=== PATIENT | male | born 1955 | race Caucasian/White ===

== ENCOUNTER → 2020-06-18 10:21 | Outpatient (CLI) | payer OTHER, SELFPAY ==
--- NOTE | ~2020-06-18 | XR_ITS ---
EXAMINATION: XR chest 2V EXAM DATE: 06/18/2020 12:48 INDICATION: Dyspnea unspecified. TECHNIQUE: Frontal and lateral projections of the chest obtained and reviewed. Comparison is made to prior examination from 12/08/2018. FINDINGS: Left midlung zone granuloma unchanged. The lungs are otherwise clear. There are no pleural effusions. The cardiomediastinal silhouette is within normal limits. There is no pneumothorax susp ected. The bones and soft tissues are unremarkable. IMPRESSION: No acute cardiopulmonary findings. Reviewed, dictated and finalized at location A.
== END ==
PROVIDERS: PCP Family Medicine; Visit Provider Nurse Practitioner Family
DX: R06.00 Dyspnea, unspecified (principal); Z72.0 Tobacco use
CPT/HCPCS: 71046

== ENCOUNTER → 2021-07-23 10:08 | Outpatient (CLI) | payer MEDICARE, SELFPAY ==
--- NOTE | ~2021-07-23 | XR_ITS ---
EXAMINATION: XR chest 2V EXAM DATE: 07/23/2021 10:55 INDICATION: R05 - Cough. TECHNIQUE: Frontal and lateral projections of the chest obtained and reviewed. Comparison is made to prior examination from 06/18/2020. FINDINGS: There is left midlung zone granuloma. The lungs are otherwise clear. There are no pleural effusions. The cardiomediastinal silhouette is within normal limits. There is no pneumothorax susp ected. The bones and soft tissues are unremarkable. IMPRESSION: No acute cardiopulmonary findings. Reviewed, dictated and finalized at location B.
--- NOTE | ~2021-07-23 | XR_ITS ---
EXAMINATION:XR cervical spine min 6V DATE: 07/23/2021 10:54 INDICATION: Neck pain TECHNIQUE: AP, and lateral in neutral, flexion, oblique, lateral swimmers and odontoid views of the c ervical spine are provided. COMPARISON: None FINDINGS: Alignment is normal. There is no laxity with flexion or extension. The odontoid is intact. No fracture is identified. The vertebral body heights and alignment are normal. There is severe loss of intervertebral disc space height at C6-7. Small degenerative osteophytes project from the anterior endplates of multiple vertebral bodies. There is severe multilevel facet joint osteoarthritis. Moder ate uncovertebral joint osteoarthritis is present in the lower cervical spine. Prevertebral soft tiss ues are normal. IMPRESSION: 1. Moderate to severe lower cervical spondylosis. Reviewed, dictated and finalized at location A.
== END ==
PROVIDERS: PCP Family Medicine; Visit Provider Family Medicine
DX: M47.812 Spondylosis without myelopathy or radiculopathy, cervical region (principal); R05 Cough
CPT/HCPCS: 71046; 72052

== ENCOUNTER → 2021-11-24 13:35 | Outpatient (CLI) | payer OTHER, SELFPAY ==
--- NOTE | ~2021-11-24 | XR_ITS ---
XR shoulder LT min 2V DATE: 11/24/2021 14:09 INDICATION: Left shoulder pain TECHNIQUE: 4 views COMPARISON: None FINDINGS: There is osteopenia. There is mild osteophyte is at the left glenohumeral joint. No fractur e or dislocation, periosteal reaction or bone destruction or any significant abnormal left shoulder s oft tissue calcification is noted. IMPRESSION: Mild osteoarthritis at the left glenohumeral joint Osteopenia Reviewed, dictated and finalized at location A. 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
--- NOTE | ~2021-11-24 | XR_ITS ---
XR ribs LT 2V w CXR 2V DATE: 11/24/2021 14:09 INDICATION: Left chest/pleural pain TECHNIQUE: 3 views of left ribs. PA and lateral chest. COMPARISON: 07/23/2021 2 view Chest FINDINGS: Normal heart size. There is mild aortic tortuosity. No hilar or mediastinal enlargement. No pulmonary infiltrate or consolidation, pleural effusion or pulmonary vascular congestion or pneumo thorax. There is old pulmonary granulomatous disease. Diffuse osteopenia. Degenerative spurring of the thoracic spine. No left rib fracture or bone destruction is evident. IMPRESSION: No active cardiac pulmonary disease No left rib fracture is evident Degenerative spurring of the thoracic spine Osteopenia Reviewed, dictated and finalized at location A. ER VAULT
== END ==
PROVIDERS: PCP Family Medicine; Visit Provider Nurse Practitioner Family
DX: R07.81 Pleurodynia (principal); M85.88 Other specified disorders of bone density and structure, other site; M85.812 Other specified disorders of bone density and structure, left shoulder; M19.012 Primary osteoarthritis, left shoulder
CPT/HCPCS: 71046; 71100; 73030

== ENCOUNTER → 2022-03-13 09:11 | Outpatient (CLI) | payer OTHER, SELFPAY ==
--- NOTE | ~2022-03-13 | MR_ITS ---
EXAMINATION: MR shoulder LT wo con DATE: 03/13/2022 09:54 INDICATION: Left shoulder pain and tingling which extends up to the left neck post fall 3 months prio r. TECHNIQUE: Magnetic resonance imaging (MRI) of the left shoulder was performed without intravenous co ntrast. Sequences included axial PD-weighted FS FSE, coronal oblique PD-weighted FS FSE, coronal obli que T2-weighted FS FSE, sagittal PD-weighted FS FSE, and sagittal T1-weighted SE. COMPARISON: None. FINDINGS: Coracoacromial arch: The acromion undersurface is curved in morphology (type II). The coracoacromial ligament is normal. M ild acromioclavicular osteoarthritis. Rotator cuff: Moderate supraspinatus tendinopathy with partial-thickness articular sided tear along the superior fa cet footplate of the supraspinatus tendon which measures approximately 2.5 cm AP and involves approxi mately two thirds of the tendon thickness. There is approximately 3 cm medial retraction of the torn articular side of the supraspinatus tendon. There is some fraying along the articular side of the ten don and could not exclude a full-thickness perforation. Mild infraspinatus and subscapularis tendinop athy without discrete tear. The teres minor tendon is normal. Normal rotator cuff muscle bulk and si gnal. Biceps tendon, glenoid labrum and glenohumeral cartilage: Moderate tendinopathy with longitudinal split tearing and mild partial thickness tearing at the junct ion of the intra-articular and extra-articular portions of the tendon. There is a tear of the posteri or inferior glenoid labrum extending from the 6:00 position anteriorly to the 8:00 position posterior ly. There is mild degenerative fraying along the free edge of the posterior superior glenoid labrum. Partial-thickness cartilage loss with smooth chondral surface and without degenerative subchondral ch anges along the posterior and inferomedial aspect of the humeral head. Fluid: Small glenohumeral joint effusion. No loose osteochondral bodies. There is however more prominent ext ension of fluid into the deep subscapular recess. Mild bicipital tenosynovitis with small amount of f luid and mild synovitis along the long head biceps tendon sheath. Similarly there is mild subacromial /subdeltoid bursitis small amount of fluid and synovitis. Bones: Normal marrow signal with no edema, fracture or pathologic marrow replacing process. IMPRESSION: 1. Moderate supraspinatus tendinopathy with severe partial thickness articular sided tear. 2. Mild bicipital tenosynovitis with moderate tendinopathy of the long head biceps tendon and both pa rtial-thickness and longitudinal split tearing of the tendon. 3. Mild left glenohumeral osteoarthritis with tear of the posterior superior glenoid labrum. 4. Mild to moderate subacromial/subdeltoid bursitis. 5. Mild acromioclavicular osteoarthritis. Reviewed, dictated and finalized at location B. IMPRESSION: 1. Moderate supraspinatus tendinopathy with severe partial thickness articular sided tear. 2. Mild bicipital tenosynovitis with moderate tendinopathy of the long head bic eps tendon and both partial-thickness and longitudinal split tearing of the ten don. 3. Mild left glenohumeral osteoarthritis with tear of the posterior superior gl enoid labrum. 4. Mild to moderate subacromial/subdeltoid bursitis. 5. Mild acromioclavicular osteoarthritis.
== END ==
PROVIDERS: PCP Family Medicine; Visit Provider Orthopaedic Surgery
DX: S46.012A Strain of muscle(s) and tendon(s) of the rotator cuff of left shoulder, initial encounter (principal); X58.XXXA Exposure to other specified factors, initial encounter; M75.22 Bicipital tendinitis, left shoulder; M19.012 Primary osteoarthritis, left shoulder; M75.52 Bursitis of left shoulder
CPT/HCPCS: 73221

== ENCOUNTER 2022-03-24 12:25 | Outpatient (CLI) | payer OTHER, SELFPAY ==
--- NOTE | 2022-03-24 12:30 | ECG_ITS ---
Measurements Intervals [place] Rate: 99 P: 27 MI: 197 QRS: 35 QRSD: 84 T: 19 QT: 335 QTc: 431 Interpretive Statements SINUS RHYTHM MINIMAL Q WAVES- ANTEROLAT/INF LEADS BORDERLINE T WAVE ABNORMALITY- INFERIOR LEADS BASELINE ARTIFACT- I, II, III, AVR BORDERLINE ECG Electronically Signed On 03-24-2022 13:05:35 CDT by Jason Rubio D.O.
== END 2022-03-24 12:26 | disposition home or self-care (01) ==
LOC: ANHSURGERY 12:30
PROVIDERS: PCP Family Medicine; Visit Provider Orthopaedic Surgery
DX: Z01.810 Encounter for preprocedural cardiovascular examination (principal); F17.210 Nicotine dependence, cigarettes, uncomplicated
CPT/HCPCS: 93005

== ENCOUNTER 2022-03-30 00:13 | Day surgery (SDC) | payer OTHER, SELFPAY ==
[2022-03-22 09:59] VITALS: BMI 30.3
--- NOTE | 2022-03-22 10:19 | PC.NURSE ---
Report to the Outpatient Waiting Room, entrance under the green pavilion located off [facility], at time _9:30AM on date ___03/30/22____. OR Time: _11:30AM . - You and your visitor will be asked a series of questions to screen for COVID 19 for your protection. - Only one visitor is allowed at this time. - The patient visitor is requested to leave or wait in car when not with patient. - A mask is required within the hospital. Patients may have clear liquids (water, carbonated beverages, clear teas, apple juice) until 3 hours prior to surgery with a maximum of 20 ounces. - No food from midnight until time of surgery - Infants may have breast milk until 4 hours before surgery, formula 6 hours prior to surgery. - Children will be allowed to drink immediately following surgery. If applicable, please bring a bottle or sippy cup to assist with drinking. Juice, water, soda, and popsicles are readily available. For infants on formula, please bring formula the day of surgery. Pacifiers are allowed. Take the following medications with a SIP of water the morning of surgery: NONE Medications to discontinue per physician NONE Date to take last dose Please no make-up, nail pashto, hairspray, perfume, deodorant, or body powder the day of surgery. No jewelry (including any body piercings) or valuables the day of surgery, leave them at home. Please take a shower or bath the night before, or the morning of, surgery with an antibacterial soap. Wear comfortable, loose fitting clothing. Children are encouraged to wear pajamas. - Jewelry must be removed prior to entering the operating room. Rings and piercings that are not removed may be cut off. - The hospital will not accept responsibility for valuables. - Please leave all valuables, including medications, at home the day of surgery. If you are going home after surgery, a licensed tank driver must drive you home. - NO public transportation without another adult. - We recommend that an adult stay with you for 24 hours following discharge. - We also recommend that you do not drive, make important decision, drink alcoholic beverages, or take any drugs that were not prescribed by your health care provider for at least 24 hours after your discharge time. For Pediatric surgeries, we recommend two adults accompany the child home (only one inside the building at this time). Follow any additional instructions given to you from your surgeon. If you or anyone in your household have experienced Covid symptoms in the past week, please notify your surgeon or the nurse liaison at the phone number below for possible testing. Telephone instructions given to ____PATIENT and asked if any additional questions and then verbalized understanding. Patient advised to call surgeon office or pre surgery nurse liaison [phone] if any additional questions.
[2022-03-30] VITALS (10 sets, daily range): BP systolic 124–143; BP diastolic 75–94; PULSE 77–97; RESP 14–20; TEMP 36.2–36.7; O2SAT 96–100
--- NOTE | 2022-03-30 08:22 | WPDHPUPDATE1 ---
History and Physical Update Update Date/Time: 03/30/22 08:22 History and Physical has been reviewed, including an updated exam of the patient. There are NO changes in the patient's condition. Risks, benefits, and alternatives have been discussed and questions answered. Patient agrees to proceed with procedure.
[2022-03-30] MEDS: ACETAMINOPHEN 500 MG TABLET 1000 MG PO (09:39)
[2022-03-30] MEDS: LACTATED RINGERS 1,000 ML 30 ML IV CONT ×2 (10:11→12:44)
[2022-03-30] MEDS: KETOROLAC 15 MG/ML VIAL (*BKC) IV PUSH (10:13)
--- NOTE | 2022-03-30 10:16 | WPDANESEPPF ---
Anes - Initial Pre Proc Eval Procedure: Operation Date: 03/30/22 08:30 Proposed Procedures p Left Arthroscopic Rotator Cuff Repair, Biceps Tenodesis - Keanu Lynch MD Date/Time: 03/30/22 10:16 Surgeon: Keanu Lynch MD Pre Op Diagnosis: Left Complete Rot Cuff Tear Patient Data Age: 66 Gender: M Height: 1.78 m Weight: 95.4 kg Last Vital Signs Temp 36.7 C 03/30/22 10:14 Pulse 97 03/30/22 10:14 Resp 16 03/30/22 10:14 BP 143/85 H 03/30/22 10:14 Pulse Ox 96 03/30/22 10:14 Allergies Allergy/AdvReac Type Severity Reaction Status Date / Time No Known Allergies Allergy Verified 03/30/22 09:35 Home Medications Medication Instructions Recorded Confirmed Type tadalafil 5 mg tablet 5 mg PO DAILY PRN #9 tablet 11/24/21 03/24/22 Rx oxycodone-acetaminophen 1 - 2 tablet PO Q4-6H PRN #30 03/30/22 Rx tablet MDD 6 Patient hx anesthesia problems: none Family hx anesthesia problems: none Results Review: All pre-operative results and documents have been reviewed as part of the pre-operative evaluation. [facility] Past Medical History Medical History (Updated 03/30/22 @ 10:17 by Koko Fernandez MD) BMI 28.0-28.9,adult BMI 30.0-30.9,adult COPD (chronic obstructive pulmonary disease) Cough High risk sexual behavior Neck pain Numbness of toes Screening PSA (prostate specific antigen) Surgical History Surgical History History of hip surgery (~2018) hip replacement Family History Family History Mother Family history of glaucoma Hypertension Father Family history of malignant neoplasm Social History Social History Smoking packs per day: 2 Smoking cigarettes per day: 40.0 Years smoked: 40 Smoking pack-years: 80.00 Smoking status: Current some day smoker (quit nov 21 2021) Tobacco type: cigarettes Alcohol intake: current Drinks per week: 14 Substance use: never Substance use type: does not use Living arrangements: alone Spiritual care concerns: No Anes - Eval Final PreProcedure Day of Procedure 03/30/22 10:16 Patient weight: obese Heart: regular rate and rhythm Lungs: clear to auscultation Airway: Mallampati scale class II Neurological: alert and oriented Last oral intake: >/= 8 hours ASA classification: III Emergent: no Anesthetic plan: proceed Anesthesia type and monitoring: general ETT and standard monitoring Results Review: All pre-operative results and documents have been reviewed as part of the pre-operative evaluation. Informed Consent: The patient's anesthetic plan and its attendant risks and benefits were discussed with the patient/family/POA. Questions were solicited and answers provided to the satisfaction of the patient/family/POA.
--- NOTE | 2022-03-30 10:20 | WPDHPUPDATE1 ---
History and Physical Update Update Date/Time: 03/30/22 10:20 Clarification: Procedure is arthroscopic. History and Physical has been reviewed, including an updated exam of the patient. There are NO changes in the patient's condition. Risks, benefits, and alternatives have been discussed and questions answered. Patient agrees to proceed with procedure.
[2022-03-30] MEDS: ceFAZolin 2 GM/D5W 50 ML 2 GM/50 ML BAG IVPB (10:25)
[2022-03-30] MEDS: BUPIVACAINE HCL 0.5% PF 30 ML VIAL 15 ML INFILTRATE (10:54)
[2022-03-30] MEDS: LIDO 1%/EPINEPHRINE 1:100,000 50 ML VIAL 15 ML INFILTRATE (10:56)
[2022-03-30] MEDS: EPINEPHrine HCL INJ 1 MG/ML AMPUL 6 MG IRRIGATION (11:33)
[2022-03-30] MEDS: fentaNYL CITRATE INJ (*CRX) 100 MCG/2 ML VIAL 25 MCG IV PUSH ×2 (13:25→13:50)
--- NOTE | 2022-03-30 13:30 | W.PM.PROC2 ---
Procedure Note - Detailed Date of Procedure 03/30/22 Pre-op Diagnosis Left shoulder 1. Complete Rotator Cuff Tear 2. Biceps tendinosis. Post-op Diagnosis Same Procedure Performed Left shoulder 1. Arthroscopic rotator cuff repair 2. Arthroscopic subacromial decompression 3. Arthroscopic biceps tenodesis Surgeon Keanu Lynch MD Air Conditioning Engineer Cecilia West PA-C Anesthesia General and Regional ( interscalene block) Indications Severe acute shoulder pain. MRI showed large rotator cuff tear with significant articular sided retraction/ delamination. Some evidence of bursal side integrity remaining. Significant biceps tearing was observed. Findings Indeed there was a large tear involving the articular side, But as well with a complete bursal side component. There was a L-shaped split. The tear was repaired with minimal lateralization, and closure of the L-shaped split. The biceps tenodesis was incorporated in the anterior tunnel. Description of Procedure Preoperative antibiotics were given. An interscalene block was administered in the preoperative area. The patient was bought brought to the operating room. A general anesthetic was administered. The patient was carefully positioned in the beach chair position. The head and neck were carefully positioned. The non operative extremity was also carefully positioned. The shoulder was prepped and draped in the usual sterile fashion. Examination was performed. Standard posterior and anterior arthroscopic portals were established. Inflow achieved with the arthroscopic pump using saline and epinephrine. The glenohumeral joint was carefully inspected. The articular cartilage showed grade 1/2 chondromalacia anteriorly. The labrum showed only minimal fraying. The biceps was extremely flattened and partially torn. The subscapularis had only minimal low-grade partial splitting. The tear was visible. There was some delaminated retraction of the more articular side. It was an L-shaped split posteriorly. Attention was turned to the subacromial space. A complete bursectomy was performed. The rotator cuff and footprint were lightly debrided. A modest acromioplasty was performed. The tear configuration was carefully assessed. At this point, 2 tunnels were created at the rotator cuff. The ArthroTunneler technique was utilized. Three sutures were passed through each tunnel. All sutures were then passed through the cuff tissue. The most posterior suture went 1st through the posterior infraspinatus and then up into the more mobile supraspinatus tear. A rip stop technique was used. The biceps was incorporated into the anterior tunnel suture with a locking loop. The sutures were tied arthroscopically. The arthroscopic instruments were removed. The wounds were closed with 3-0 Monocryl subcuticular suture and steri strips. There were no complications. A sling was applied and the patient brought to the recovery room. Physician nurse practitioner physician assistant, Cecilia West PA-C, required for surgery; including patient positioning, draping, arthroscopic camera operation, maintaining instrument position, suture retrieval, wound closure, and dressing and sling placement. Estimated Blood Loss 10 Pathology None sent Complications No immediate complications Condition Stable Disposition PACU [facility] Billing Surgery - Charge Forward: Surgery Billing (RCR and SAD and biceps tenodesis)
== END 2022-03-30 15:00 | disposition home or self-care (01) ==
PROVIDERS: PCP Family Medicine; Visit Provider Orthopaedic Surgery
PROC: (CPT 29805; principal; 2022-03-30 08:30)
DX: M75.102 Unspecified rotator cuff tear or rupture of left shoulder, not specified as traumatic (principal); M75.82 Other shoulder lesions, left shoulder; M19.012 Primary osteoarthritis, left shoulder; M94.212 Chondromalacia, left shoulder; M25.512 Pain in left shoulder; M47.812 Spondylosis without myelopathy or radiculopathy, cervical region; F17.210 Nicotine dependence, cigarettes, uncomplicated; J44.9 Chronic obstructive pulmonary disease, unspecified; E66.9 Obesity, unspecified; Z68.30 Body mass index [BMI] 30.0-30.9, adult
CPT/HCPCS: 29827; 29828; 29826; 93005; A9270; J0171; J0330; J0690; J1100; J1170; J1885; J2250; J2405; J2704; J2710; J3010; J7120

== ENCOUNTER → 2023-05-13 08:48 | Outpatient (CLI) | payer OTHER, SELFPAY ==
--- NOTE | ~2023-05-13 | XR_ITS ---
Right ankle Technique: AP and lateral views were obtained. Clinical History: Effusion Findings: No acute fracture or dislocation is seen. Osseous alignment is anatomic. Ankle mortise and other visualized joint spaces are preserved. Soft tissues are otherwise unremarkable. Impression: Unremarkable right ankle. Reviewed, dictated and finalized at location . Impression: Unremarkable right ankle.
--- NOTE | ~2023-05-13 | XR_ITS ---
Right Knee Technique: AP, lateral, and sunrise views were obtained. Clinical History: Pain Findings: No fracture or dislocation is seen. Osseous alignment is anatomic minimal degenerative spur ring noted at the patella. Soft tissues are unremarkable. No joint effusion is seen. Impression: Minimal patellar spurring. Reviewed, dictated and finalized at location . Impression: Minimal patellar spurring.
--- NOTE | ~2023-05-13 | XR_ITS ---
Clinical Indication: Shortness of breath PA and lateral views of the chest: Comparison: 11/24/2021 Findings: Calcified left basilar granuloma is unchanged. The lungs are otherwise clear, without evide nce of focal consolidation or pleural effusion. Cardiomediastinal silhouette is within normal limits . Bones and soft tissues are unremarkable. Impression: No significant abnormality. Reviewed, dictated and finalized at location . Impression: No significant abnormality.
== END ==
PROVIDERS: PCP Family Medicine; Visit Provider Nurse Practitioner Family
DX: R06.02 Shortness of breath (principal); M25.561 Pain in right knee; M25.471 Effusion, right ankle
CPT/HCPCS: 71046; 73562; 73600

== ENCOUNTER → 2023-05-16 16:25 | Outpatient (CLI) | payer OTHER, SELFPAY ==
--- NOTE | ~2023-05-16 | US_ITS ---
EXAMINATION: US venous doppler [facility] DATE: 05/16/2023 16:55 INDICATION: Bilateral lower limb swelling TECHNIQUE: Grayscale ultrasound images without and with compression and Doppler ultrasound images of the bilateral lower extremity veins were obtained. COMPARISON: None. FINDINGS: The visualized portions of right common femoral vein, profunda (deep) femoral vein, femoral vein, pop liteal vein, posterior tibial veins, peroneal veins, gastrocnemius vein and greater saphenous vein ou tflow are patent. The visualized portions of left common femoral vein, profunda femoral vein, femoral vein, popliteal v ein, posterior tibial veins, peroneal veins, gastrocnemius vein and greater saphenous vein outflow ar e patent. IMPRESSION: 1. No deep venous thrombosis in either lower limb. Reviewed, dictated and finalized at location A.
== END ==
PROVIDERS: PCP Family Medicine; Visit Provider Family Medicine
DX: R60.0 Localized edema (principal)
CPT/HCPCS: 93970

== ENCOUNTER 2024-02-17 15:31 | Inpatient (IN) | payer OTHER, SELFPAY ==
[2024-02-17] VITALS (29 sets, daily range): BP systolic 105–159; BP diastolic 79–101; PULSE 76–104; RESP 9–26; TEMP 36.4–36.6; O2SAT 97–100; BMI 34.4; BMI 34.0
--- NOTE | ~2024-02-17 | XR_ITS ---
XR chest 1V portable 02/17/2024 15:57 Indication: STEMI Procedure: AP portable chest Comparison: AP portable chest Findings: Heart size normal. No focal air space disease, pulmonary edema, pleural effusion or suspect ed pneumothorax. There is calcified granuloma in the left lung base. Impression: 1: No acute cardiopulmonary disease. Reviewed, dictated and finalized at location B. Impression: 1: No acute cardiopulmonary disease.
--- NOTE | 2024-02-17 15:32 | ECG_ITS ---
Measurements Intervals [place] Rate: 102 P: 29 [place]: 212 QRS: 55 QRSD: 95 T: 94 QT: 329 QTc: 429 Interpretive Statements SINUS TACHYCARDIA WITH FIRST DEGREE AV BLOCK VENTRICULAR PREMATURE COMPLEX INFERIOR ST ELEVATION MYOCARDIAL INFARCT- ACUTE ANTEROLATERAL ST ELEVATION MYOCARDIAL INFARCT- ACUTE ABNORMAL ECG COMPARED TO ECG 03/24/2022 12:41:02 SINUS TACHYCARDIA NOW PRESENT FIRST DEGREE AV BLOCK NOW PRESENT STEMI NOW PRESENT Electronically Signed On 02-17-2024 15:39:56 CDT by Jason Rubio D.O.
--- NOTE | 2024-02-17 15:42 | ED.CHESTPAIN ---
HPI - Chest Pain General Chief Complaint: Chest Pain Stated Complaint: Chest pain Time Seen by Provider: 02/17/24 15:36 History of Present Illness HPI narrative: 68-year-old male presenting to the emergency department for evaluation of left-sided chest pain has been persistent for approximately 1 hour. Upon arrival emergency department patient was plenty of chest pain and was jain appearing. EKG shows acute STEMI and code STEMI was called. Patient denies any prior history of VT, patient states he has no prior history of hypertension but does have history of high cholesterol. Patient states he is not diabetic. patient is a current smoker Related Data Home Medications Medication Instructions Recorded Confirmed No Home Medications 02/17/24 02/17/24 Allergies Allergy/AdvReac Type Severity Reaction Status Date / Time No Known Allergies Allergy Verified 05/12/23 07:53 Review of Systems Review of Systems: All systems reviewed & are unremarkable except as noted in HPI and below PMFSH Past Medical History Medical History BMI 28.0-28.9,adult BMI 30.0-30.9,adult BMI 34.0-34.9,adult BMI greater than 30 COPD (chronic obstructive pulmonary disease) Cough Dermatitis High risk sexual behavior Neck pain Numbness of toes Puncture wound, hand Screening PSA (prostate specific antigen) Surgical History Surgical History History of hip surgery (~2018) hip replacement Status post left rotator cuff repair Family History Family History Mother Family history of glaucoma Hypertension Father Family history of malignant neoplasm Alzheimer's disease Sibling , lung cancer No problems noted. Social History Social History Smoking packs per day: 2 Smoking cigarettes per day: 40.0 Years smoked: 40 Smoking pack-years: 80.00 Smoking status: Current some day smoker Second hand tobacco smoke exposure: No Alcohol intake: current Drinks per week: 3 Substance use: current Substance use type: marijuana Do You Feel Safe in your Home?: Yes Lack of Transportation: No Lack of Food: Never True Current Housing: I Have Housing Concerned About Future Housing: No Difficulty Paying Gas/Electric Bills: No Difficulty Paying for Meds: No Currently Unemployed: No Education: High School Diploma/GED Difficulty w/ Childcare or Family Care: No Living arrangements: alone Occupation/Education: retired 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 EYES: PERRLA/EOMI, conjunctivae clear. NOSE: Normal no drainage EARS:TMS clear with good light reflex. THROAT: Pharynx clear, no exudate. NECK: Supple. No adenopathy, no masses. RESPIRATORY: Airway patent, respirations nonlabored. Clear to auscultation bilaterally, no rales, rhonchi, wheezing. CARDIOVASCULAR: Regular rate and rhythm without murmurs rubs or gallops. ABDOMINAL: Soft, nontender, nondistended, normal bowel sounds MUSCULOSKELETAL: Moves all extremities. Strength/ROM intact, No edema, No calf tenderness. NEURO: Alert. Cranial nerves II through XII intact. grossly intact Course Vital Signs Vital signs: Vital Signs Pulse Rate 104 H 02/17/24 15:47 Temperature 97.6 F 02/17/24 20:43 Pulse Rate 83 02/17/24 21:14 Respiratory Rate 13 02/17/24 21:14 Blood Pressure 132/86 02/17/24 21:14 Pulse Oximetry 100 02/17/24 21:14 Oxygen Delivery Room Air 02/17/24 15:54 MDM - Chest Pain MDM Narrative Medical decision making narrative: 68-year-old male present to
[2024-02-17] MEDS: ASPIRIN 81 MG CHEWABLE TABLET 324 MG PO (15:44)
[2024-02-17] MEDS: TICAGRELOR 90 MG TABLET 180 MG PO (15:45)
[2024-02-17 15:47] LABS: Basophils Absolute Auto 0.1 K/mm3 (0.0-0.1); Basophils Percent Auto 0.6 % (0.2-1.2); Eosinophils Absolute Auto 0.1 K/mm3 (0-0.3); Eosinophils Percent Auto 0.8 % (0-4.4); Hematocrit 48.8 % (42.0-52.0); Hemoglobin 15.6 g/dL (14.0-18.0); Immature Granulocyte Absolute 0.05 K/mm3 (0.00-0.031); Immature Granulocyte Percent A 0.3 % (0-0.5); Lymphocytes Absolute Auto 5.89 K/mm3 (0.9-3.2); Lymphocytes Percent Auto 40.9 % (18.3-44.2); Mean Corpuscular Hemoglobin 29.8 pg (26-34); Mean Corpuscular Volume 93.3 fl (80-100); Monocytes Absolute Auto 1.3 K/mm3 (0.1-0.6); Monocytes Percent Auto 9.2 % (2.6-8.5); Neutrophils Absolute Auto 6.9 K/mm3 (1.3-6.7); Neutrophils Percent Auto 48.2 % (45.5-73.1); Platelet Count Result 304 k/mm3 (150-375); Red Blood Count 5.23 M/mm3 (4.6-6.20); Red Cell Distribution Width 13.7 % (11.5-14.5); White Blood Count 14.4 K/mm3 (4.5-10.0)
[2024-02-17] MEDS: METOPROLOL TARTRATE 25 MG TABLET PO (15:47)
--- NOTE | 2024-02-17 15:47 | PC.NURSE ---
1535 STEMI O/H on [phone] Interventional Cardiology-Dr. Parkinson notified 1540 Stacy sent 1541 [facility] called for standby
[2024-02-17 15:58] LABS: Prothrombin Time 13.2 Seconds (11.1-14.7)
[2024-02-17 15:59] LABS: Partial Thromboplastin Time 22.3 Seconds (22.3-36.8)
[2024-02-17 16:03] LABS: Alanine Aminotransferase 29 U/L (6-50); Albumin Level 4.5 g/dL (3.5-5.1); Alkaline Phosphatase 108 U/L (38-126); Anion Gap 7 mmol/L (4-12); Aspartate Amino Transferase 27 U/L (17-59); Bilirubin,Total 0.7 mg/dL (0.2-1.3); Blood Urea Nitrogen 10 mg/dL (9-20); Calcium 9.3 mg/dL (8.4-10.2); Carbon Dioxide 28 mmol/L (22-30); Chloride 103 mmol/L (98-107); Estimated Glomerular Filt Rate > 60; Glucose 150 mg/dL (65-110); Lipase 65 U/L (23-300); Sodium 138 mmol/L (137-145)
[2024-02-17 16:28] LABS: Troponin I < 0.012 ng/mL (0.000-0.034)
--- NOTE | 2024-02-17 17:04 | ECG_ITS ---
Measurements Intervals [place] Rate: 80 P: 35 MS: 211 QRS: 42 QRSD: 91 T: 67 QT: 371 QTc: 430 Interpretive Statements SINUS RHYTHM WITH FIRST DEGREE AV BLOCK VENTRICULAR PREMATURE COMPLEX INFERIOR INFARCT, RECENT ABNORMAL ECG COMPARED TO ECG 02/17/2024 15:34:38 SINUS RHYTHM NOW PRESENT INFERIOR INFARCT, RECENT NOW PRESENT Electronically Signed On 02-18-2024 7:25:05 CDT by Jason Rubio D.O.
--- NOTE | 2024-02-17 17:09 | WPDCARDPROC ---
Cardiac Cath Procedure Note Date of procedure:: 02/17/24 Performing physician:: Maximo Parkinson MD Indication:: ST elevation [place] Brief clinical history:: this is a 68-year-old man with a history of smoking and dyslipidemia who come to the emergency room this evening with about 2 hours of chest pain and has acute inferolateral infarction by ECG criteria. He has no previous cardiac history. Procedure Procedure performed:: Emergency coronary angiography emergency PCI(JOSÉ MIGUEL) to the proximal right coronary artery left ventriculography Sedation/Medication given:: fentanyl 50 mg Versed 2 mg case start time 4:12 p.m. case end time 4:52 p.m. sedation provided by Syeda Back RN, trained observer Access site:: right femoral artery Estimated blood loss:: 25 cc Procedure note:: patient was brought to the cardiac catheterization lab in the emergency setting described above where the right femoral triangle was prepared and draped in the normal fashion. Anesthesia was provided with 15 cc of 1% lidocaine infiltrated locally. Using the modified Seldinger technique the femoral artery was punctured and a 6 [place] vascular sheath was placed. After this I used a 5 [place] FL4 catheter to engage and inject the left coronary artery in multiple projections. following this I used a 5 [place] JR4 catheter to engage checked the right coronary artery. Following this the cineangiograms were reviewed and emergency PCI of the right coronary artery occlusion was recommended and carried out as detailed below. Prior to right coronary PCI the patient received bolus and infusion of Angiomax for procedural anticoagulation. He had received 325 mg of aspirin and 180 mg of Brilinta in the emergency department. Following completion of revascularization this described below a 5 [place] angled pigtail catheter was used to measure left hemodynamics and to inject ventriculogram in the [place] projection. Procedure was then terminated sheath sutured into position with 2-0 silk and the patient was taken to the ICU for post [place] /PCI recovery. The patient Was stable the procedure was on no sign of groin hematoma upon leaving the tutorial laboratory supervisor. Findings:: hemodynamics: The central aortic pressure was 100 over 60 left ventricle 142 end-diastolic pressure 18 there was no gradient on pullback across the aortic valve. Left ventricle: The left ventricle is normal in size the infero posterior segment completely akinetic the apex and anterior lateral segments contract well the global ejection fraction is visually estimated to be 45%. The left main coronary artery is widely patent the left anterior descending is a moderate caliber vessel extending down to the apex. The LAD has mild diffuse luminal irregularities with mild nonocclusive atherosclerosis throughout its extent there are no flow-limiting lesions identified. The circumflex caliber artery giving rise to the marginal branches. There is about 60% mid stenosis in the circumflex at the site of the 1st OM branch there are no flow-limiting lesions seen in the circumflex system right coronary artery is large in caliber dominant the posterior circulation is 100% occluded in the 1st portion. Intervention: Right coronary artery was engaged using a 6 [place] JR4 guiding catheter. I used a 0.014 BMW wire to probe the occluded segment and passed the wire into the distal RCA into the RPDA. The occluded segment was then pre-dilated using a 3 x 20 mm Panterra balloon at nominal pressure for 60 seconds. After this there was RISSA 3 flow restored in the vessel there was complex diffuse disease in the target lesion and distal to this there was extensive clot burden seen down to the 3rd portion of the artery. For this reason I then used the penumbra extraction device to tract used a target lesion down to the 3rd portion of the RCA using 3 different passes wrist after this angiographically there was no visible clot in the
--- NOTE | 2024-02-17 17:19 | ADMGEN ---
This patient, Norm Torres, was admitted to Intensive Care Unit-3. Patient/family oriented to hospital policies and general routines including ID bracelet, bed and alarms, visiting hours, pain management, procedures, bathroom and other care routines, personal items, smoking policy, room service/diet, and visiting hours. Information on how to activate the Rapid Response Team has been discussed. Patient/Family are encouraged to report perceived risks to care and to ask questions if they do not understand what they are told or what they should do.
--- NOTE | 2024-02-17 17:19 | PM.IMHP ---
H&P: HPI History of Present Illness Date/Time: 02/17/24 17:19 Chief Complaint: chest pain Narrative: this is a 68-year-old man on known to me who is being prepared for emergency coronary angiography in the setting of acute inferolateral ST segment elevation [place]. History is truncated as he is being. Paired for emergency catheterization and revascularization. He reports no previous knowledge of ischemic heart disease, history of dyslipidemia and ongoing cigarette smoking. He began to have significant chest pain this afternoon to 2 hours before coming to the emergency room where his EKG was clearly diagnostic of ST-elevation [place]. patient is very comfortable in appearance but reports ongoing 67/10 chest pain as we prepare him for angiography Review of Systems Review of Systems: ROS unobtainable: Yes unobtainable due to medical condition PMFSH Past Medical History Medical History BMI 28.0-28.9,adult BMI 30.0-30.9,adult BMI 34.0-34.9,adult BMI greater than 30 COPD (chronic obstructive pulmonary disease) Cough Dermatitis High risk sexual behavior Neck pain Numbness of toes Puncture wound, hand Screening PSA (prostate specific antigen) Surgical History Surgical History History of hip surgery (~2018) hip replacement Status post left rotator cuff repair Family History Family History Mother Family history of glaucoma Hypertension Father Family history of malignant neoplasm Alzheimer's disease Sibling , lung cancer No problems noted. Social History Social History Smoking packs per day: 2 Smoking cigarettes per day: 40.0 Years smoked: 40 Smoking pack-years: 80.00 Smoking status: Current some day smoker Tobacco type: cigarettes Second hand tobacco smoke exposure: No Alcohol intake: current Drinks per week: 3 Substance use: current Substance use type: marijuana Do You Feel Safe in your Home?: Yes Lack of Transportation: No Lack of Food: Never True Current Housing: I Have Housing Concerned About Future Housing: No Difficulty Paying Gas/Electric Bills: No Difficulty Paying for Meds: No Currently Unemployed: No Education: High School Diploma/GED Difficulty w/ Childcare or Family Care: No Living arrangements: alone Occupation/Education: retired 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 Gender identity (if verbalized by the patient): Male Spiritual care concerns: No Meds Home Medications and Allergies Allergies Allergy/AdvReac Type Severity Reaction Status Date / Time No Known Allergies Allergy Verified 05/12/23 07:53 Vital Signs Vital Signs - 24 hr 02/17/24 15:47 02/17/24 15:53 02/17/24 15:54 Pulse Rate 104 H 103 H Respiratory Rate 12 Blood Pressure 140/96 H Pulse Oximetry 98 99 Oxygen Delivery Room Air Exam Const: Other: rather stoic appearing 68-year-old gentleman appears a bit older than his stated age otherwise comfortable cooperative in no distress HENMT: Mouth: Yes moist mucous membranes Neck: Neck: supple and no JVD Resp: Effort & Inspection: normal respiratory effort Other: breath sounds somewhat diminished in both lung peña no active wheezing or rales Cardio: Rate: regular rate Rhythm: regular rhythm Other: no murmur no gallop, PMI difficult to palpate GI: GI Palp: Yes Soft to palpation Auscultation: normal bowel sounds Skin: General skin exam: normal color Neuro: Other: alert and oriented x3 Extrem: Other: no edema, adequate perfusion H&P: Results Labs Labs: Short CBC 02/17/24 Range/Units 15:40 WBC 14.4 H (4.5-10.0) K/mm3 Hgb 15.6 (14.0-18.0) g/dL Hct 48.8 (42.0-52.0)
[2024-02-17] MEDS: SODIUM CHLORIDE 0.9% IV 1,000 ML 125 ML IV CONT (17:49)
[2024-02-17 17:58] LABS: NT Pro B Type Natriuretic Pept 227 pg/mL (19.9-100)
[2024-02-17 18:07] LABS: LDL Cholesterol Direct 137 mg/dL
--- NOTE | 2024-02-17 18:35 | PC.NURSE ---
Angiomax complete at 1835.
[2024-02-17 18:36] LABS: Cholesterol 212 mg/dL (0-200); HDL Direct 32 mg/dL; Triglycerides 225 mg/dL (<150)
[2024-02-17 19:11] LABS: MRSA (PCR) NOT DETECTED (NOT DETECTE)
[2024-02-17] MEDS: TICAGRELOR 90 MG TABLET PO (21:38)
[2024-02-18] VITALS (21 sets, daily range): BP systolic 99–147; BP diastolic 74–113; PULSE 75–103; RESP 13–27; TEMP 36.5–36.9; O2SAT 94–99
[2024-02-18 00:11] LABS: Troponin I > 80.000 ng/mL (0.000-0.034)
--- NOTE | 2024-02-18 05:11 | ECG_ITS ---
Measurements Intervals [place] Rate: 92 P: 157 DE: 204 QRS: 181 QRSD: 84 T: 184 QT: 357 QTc: 443 Interpretive Statements SINUS RHYTHM ARM LEADS REVERSED BORDERLINE AV CONDUCTION DELAY EARLY PRECORDIAL R/S TRANSITION INFERIOR INFARCT, RECENT BASELINE ARTIFACT- I, II, III ABNORMAL ECG COMPARED TO ECG 02/17/2024 18:06:43 NO SIGNIFICANT CHANGES Electronically Signed On 02-18-2024 8:15:26 CDT by Jason Rubio D.O.
[2024-02-18 07:23] LABS: Hematocrit 42.9 % (42.0-52.0); Mean Corpuscular HGB Conc 32.6 g/dl (32-36); Mean Corpuscular Hemoglobin 29.9 pg (26-34); Mean Corpuscular Volume 91.7 fl (80-100); Mean Platelet Volume 10.2 fl (7.4-10.4); Platelet Count Result 226 k/mm3 (150-375); Red Blood Count 4.68 M/mm3 (4.6-6.20); White Blood Count 12.6 K/mm3 (4.5-10.0)
[2024-02-18 07:27] LABS: Anion Gap 4 mmol/L (4-12); Blood Urea Nitrogen 11 mg/dL (9-20); Calcium 8.7 mg/dL (8.4-10.2); Carbon Dioxide 28 mmol/L (22-30); Chloride 101 mmol/L (98-107); Estimated CRCL calculation 96 ml/min; Estimated Glomerular Filt Rate > 60; Glucose 112 mg/dL (65-110); Phosphorus 3.1 mg/dL (2.5-4.5); Sodium 133 mmol/L (137-145)
--- NOTE | 2024-02-18 08:32 | WPDCNINT ---
Assessment and Plan Assessment and plan (1) ST elevation (STEMI) myocardial infarction: Code(s): I21.3 - ST elevation (STEMI) myocardial infarction of unspecified site Status: Acute Assessment and Plan: 02/16: Patient presented the ED with complains of substernal chest pain associated with diaphoresis, shortness of breath and nausea. Denies any radiation. - In the ER EKG showed acute inferior and anterolateral ST-elevation [place]. Code STEMI was called and patient was taken to the cardiac label sewer where was found to have 100% occlusion of the proximal RCA, status post PTCA/PCI with JOSÉ MIGUEL x1 to proximal RCA. There was extensive clot distal to the occlusion which was addressed with extraction thrombectomy. EF of 45%. -patient currently on aspirin, ticagrelor, statin, beta-erik, losartan -cardiology following the patient -currently chest pain-free (2) Tobacco abuse: Code(s): Z72.0 - Tobacco use Status: Acute Assessment and Plan: Patient smokes 2 packets per day for 40 years, 80 pack-year smoking history -counseled patient on cessation of smoking given his RI, patient is very receptive about quitting smoking (3) Mixed hyperlipidemia: Code(s): E78.2 - Mixed hyperlipidemia Status: Acute Assessment and Plan: Continue rosuvastatin Plan DVT prophylaxis: Status post RI and cardiac catheterization Stress ulcer prophylaxis: Not indicated Nutrition: Heart healthy diet Code Status: Full code Critical Care Time Spent: 41 minutes Due to a high probability of clinically significant, life threatening deterioration, the patient required my highest level of preparedness to intervene emergently and I personally spent this critical care time directly and personally managing the patient. This critical care time included obtaining a history; examining the patient; pulse oximetry; ordering and review of studies; arranging urgent treatment with development of a management plan; evaluation of patient's response to treatment; frequent reassessment; and discussions with other providers. It was exclusive of separately billable procedures and treating other patients and teaching time. Please see Assessment and Plan section and the rest of the note for further information on patient assessment and treatment This dictation may have been done utilizing a voice recognition system. Attempts have been made to correct errors. However, there may be uncorrected grammatical, spelling, and recognitions errors present. Online Merchant Consult Note Consult date: 02/18/24 Reason for consult: Acute inferior ST-elevation RI status post JOSÉ MIGUEL x1 to proximal RCA, EF of 45% HPI: Norm Torres is a 68 year old male with past medical history of tobacco abuse, hyperlipidemia, COPD, no known previous cardiac history presented the ED on 02/17/2024 with complains of chest pain that started 2 hours prior to arrival to the ED. Patient complained of continuous substernal chest pain, associated with nausea, shortness of breath and diaphoresis. He denies any radiation. Patient stated he drove himself to the ED. In the ER EKG showed acute inferior and anterolateral ST-elevation RI. Code STEMI was called and patient was taken to the cardiac label sewer where was found to have 100% occlusion of the proximal RCA, status post PTCA/PCI with JOSÉ MIGUEL x1 to proximal RCA. There was extensive clot distal to the occlusion which was addressed with extraction thrombectomy. EF of 45%. Patient was transferred to the ICU for further management Patient seen and examined the ICU, is awake, alert, oriented. Denies any chest pain, shortness of breath, abdominal pain, nausea, vomiting, diaphoresis at this time. He states he feels much better and is ready to eat his breakfast. Patient smokes 2 packets of cigarettes per day, smokes marijuana daily, denies any alcohol use. Patient is hemodynamically stable, afebrile, adequate urine output. Review of Sys
[2024-02-18] MEDS: ASPIRIN 81 MG CHEWABLE TABLET PO (08:53)
[2024-02-18] MEDS: TICAGRELOR 90 MG TABLET PO ×2 (08:54→20:46)
[2024-02-18] MEDS: METOPROLOL SUCCINATE EXT REL 25 MG TABCR PO (08:54)
[2024-02-18] MEDS: LOSARTAN POTASSIUM 12.5 MG TABLET PO (08:54)
[2024-02-18] MEDS: ROSUVASTATIN 20 MG TABLET PO (08:54)
--- NOTE | 2024-02-18 09:19 | ECHO_ITS ---
Patient Info Name: Norm Torres Age: 68 years : 1955 Gender: Male Ht: 70 in Wt: 230 lbs BSA: 2.30 m2 HR: 99 bpm BP: 129 / 81 mmHg Heart Rhythm: Sinus Rhythm Technical Quality: Good Exam Date: 02/18/2024 10:06 AM Exam Location: Echo Lab Patient Status: Inpatient Admit Date: 02/17/2024 Staff Ordering Physician: Feroz Kaufman MD Outpatient Dietitian: Gelacio Huynh RDCS Attending Provider: Maximo Parkinson MD Referring Physician: Shae MOSES; Exam Type: CA echo dop color flow w con Study Info Indications - STEMI Complete two-dimensional, color flow and Doppler transthoracic echocardiogram is performed with contrast to opacify the left ventricle and to improve the deliniation of the left ventricle endocardial borders. Summary 1. Technically difficult study with limited views. Definity contrast enhancement administered. 2. Left ventricular systolic function is normal, estimated at 55% with severely hypokinetic to akinetic mid and basal inferior wall. 3. There is mild mitral valve regurgitation. 4. The mitral valve annulus is mildly calcified. 5. There is no aortic valve stenosis. 6. There is no aortic valve regurgitation. 7. There is trace tricuspid valve regurgitation. 8. No pulmonary hypertension, estimated pulmonary arterial systolic pressure is 16 mmHg. Left Ventricle Left ventricular systolic function is normal, estimated at 55% with severely hypokinetic to akinetic mid and basal inferior wall. Technically difficult study with limited views. Definity contrast enhancement administered. Left ventricular chamber dimension is normal. There is moderately increased left ventricular wall thickness. The left ventricular diastolic function is grade I diastolic dysfunction. Right Ventricle Right ventricular chamber dimension is normal. Right ventricular systolic function is normal. Left Atria Left atrial chamber dimension is normal. Right Atria Right atrial chamber dimension is normal. Aortic Valve The aortic valve is not well visualized. There is no aortic valve stenosis. There is no aortic valve regurgitation. Pulmonic Valve The pulmonic valve is not well visualized. Mitral Valve The mitral valve has normal leaflets. There is mild mitral valve regurgitation. The mitral valve annulus is mildly calcified. Tricuspid Valve The tricuspid valve leaflets are normal. There is trace tricuspid valve regurgitation. No pulmonary hypertension, estimated pulmonary arterial systolic pressure is 16 mmHg. Pericardium/Pleural The pericardium appears epicardial fat pad. There is small pericardial effusion. Aorta The aortic root size at the sinus of Valsalva is normal. There is mild-moderate aortic atherosclerosis. Left Ventricular Outflow Tract Name Value Normal LVOT 2D LVOT Diameter 2.07 cm LVOT Doppler LVOT Peak Gradient 2 mmHg LVOT Mean Gradient 1 mmHg LVOT VTI 11.38 cm LVOT VTI/AV VTI Ratio 0.71 LVOT Stroke Volume 38.30 ml LVOT CO 2.92 l/min LVOT CI 1.27 L/min/m2
--- NOTE | 2024-02-18 10:10 | PM.PNCARD ---
Progress Note: A&P Assessment and Plan (1) ST elevation (STEMI) myocardial infarction: Code(s): I21.3 - ST elevation (STEMI) myocardial infarction of unspecified site Status: Acute Assessment and Plan: No prior known history of CAD presents with acute onset ST-elevation [place] 100% proximal RCA occlusion with extensive thrombus burden status post 4.0 x 30 mm Medtronic olga for anterior drug-eluting stent. Distal embolization of terminal portion of right PDA noted. 60% circumflex stenosis OM1, lad mild diffuse luminal irregularities, EF 45%. Very high troponin greater than 80 indicative of significant myocardial injury. Discussed with the patient at length. Discussed high risk 24-48 hours and high risk persistent over the next 30 days potential life-threatening or fatal ventricular arrhythmias, subsequent myocardial infarction, bleeding, etc.. Discussed importance of monitoring for next 48 hours given extensive troponin elevation. Patient verbalized understanding and agreed. All questions answered to his satisfaction. Report patient must immediate and absolutely stop smoking. He understands and agrees. Explained the importance of compliance with medications without fail. Particularly emphasized importance of compliance with aspirin and Brilinta given the risk for acute stent thrombosis and acute myocardial infarction with may be life-threatening or potentially fatal. Patient verbalized understanding agreed. Explained importance of his other medications for cardiovascular support given his high risk time post myocardial infarction. Transfer to IMU today. 2D echocardiogram for further evaluation for valvular pathology, LV size/function, LV thrombus given akinesis of apex, pulmonary pressures. Continue telemetry. (2) Ischemic cardiomyopathy: Code(s): I25.5 - Ischemic cardiomyopathy Status: Acute Assessment and Plan: EF 45% with akinesis of the apex and anterolateral mixon. Optimize medical therapy. Continue losartan 12.5 mg daily, Toprol XL 25 mg daily. DVT prophylaxis with enoxaparin. Patient is well compensated. Monitor volume status. (3) Nonsustained ventricular tachycardia: Code(s): I47.29 - Other ventricular tachycardia Status: Acute Assessment and Plan: Brief, nonsustained asymptomatic ventricular tachycardia. Continue telemetry. Discussed with the patient. Continue Toprol XL 25 mg daily. Up titrate as warranted. (4) Paroxysmal atrial tachycardia: Code(s): I47.19 - Other supraventricular tachycardia Status: Acute Assessment and Plan: Asymptomatic brief episodes of paroxysmal atrial tachycardia. No AFib or a flutter observe thus far. Continue telemetry. Toprol XL 25 mg daily. (5) Tobacco abuse: Code(s): Z72.0 - Tobacco use Status: Acute Assessment and Plan: As above, immediate and absolute smoking cessation day camp counselor performed. Patient verbalized understanding and agreed. Offered nicotine patch for smoking cessation a patient states he was fine did not require this at this time. (6) Mixed hyperlipidemia: Code(s): E78.2 - Mixed hyperlipidemia Status: Acute Assessment and Plan: Continue rosuvastatin 20 mg at bedtime, goal LDL less than 70. (7) BMI greater than 30: Status: Acute Assessment and Plan: Outpatient cardiac rehab as appropriate. Weight loss, lifestyle modifications reduction caloric intake per Subjective Date/time seen: Date of service: 02/18/24 10:10 Follow-up for ST-elevation [place] Interval history: Patient feeling well this morning. Denies chest pain or shortness of breath. No new issues overnight. Brief nonsustained VT noted on telemetry as well as asymptomatic atrial tachycardia. Review of Systems Review of Systems: Remainder of the review of systems is otherwise negative aside from that noted in the HPI. All systems reviewed & are unremarkable except as noted in HPI and belo
[2024-02-18] MEDS: ENOXAPARIN 40 MG/0.4 ML SYRINGE SUB-Q (10:46)
[2024-02-18] MEDS: PERFLUTREN LIPID MICROSPHERES 1.5 ML VIAL DILUTED TO 10 ML TOTAL VOLUME IV PUSH (11:00)
--- NOTE | 2024-02-18 11:51 | IVDEFINITY ---
Prior to administration of IV Definity the patient was educated on the risks and benefits of the imaging enhancing agent including potential adverse side effects. The patient verbalized understanding. Allergies were verified. No exclusion criteria were identified and at least one of the following inclusion criteria were met: 1) physician request, 2) patient technically difficult to image (per the [place] [employer] guidelines of two or more segments not discernable within the apical view), or 3) questionable left ventricular function. ?
[2024-02-19] VITALS (11 sets, daily range): BP systolic 96–148; BP diastolic 61–81; PULSE 72–103; RESP 15–24; TEMP 36.2–37; O2SAT 94–97
[2024-02-19 04:28] LABS: Hematocrit 42.5 % (42.0-52.0); Hemoglobin 13.7 g/dL (14.0-18.0); Mean Corpuscular HGB Conc 32.2 g/dl (32-36); Mean Corpuscular Hemoglobin 29.8 pg (26-34); Mean Corpuscular Volume 92.4 fl (80-100); Platelet Count Result 206 k/mm3 (150-375); Red Cell Distribution Width 13.9 % (11.5-14.5); White Blood Count 10.8 K/mm3 (4.5-10.0)
[2024-02-19 04:37] LABS: Anion Gap 0 mmol/L (4-12); Blood Urea Nitrogen 11 mg/dL (9-20); Calcium 8.8 mg/dL (8.4-10.2); Carbon Dioxide 33 mmol/L (22-30); Chloride 105 mmol/L (98-107); Estimated CRCL calculation 86 ml/min; Estimated Glomerular Filt Rate > 60; Glucose 102 mg/dL (65-110); Sodium 138 mmol/L (137-145)
[2024-02-19] MEDS: ENOXAPARIN 40 MG/0.4 ML SYRINGE SUB-Q (08:54)
[2024-02-19] MEDS: LOSARTAN POTASSIUM 12.5 MG TABLET PO (08:54)
[2024-02-19] MEDS: METOPROLOL SUCCINATE EXT REL 25 MG TABCR PO (08:54)
[2024-02-19] MEDS: ASPIRIN 81 MG CHEWABLE TABLET PO (08:54)
[2024-02-19] MEDS: ROSUVASTATIN 20 MG TABLET PO (08:55)
[2024-02-19] MEDS: TICAGRELOR 90 MG TABLET PO ×2 (08:55→20:25)
--- NOTE | 2024-02-19 09:10 | PM.PNCARD ---
Progress Note: A&P Assessment and Plan (1) ST elevation (STEMI) myocardial infarction: Code(s): I21.3 - ST elevation (STEMI) myocardial infarction of unspecified site Status: Acute Assessment and Plan: No prior known history of CAD presents with acute onset ST-elevation IN 100% proximal RCA occlusion with extensive thrombus burden status post 4.0 x 30 mm Medtronic olga for anterior drug-eluting stent. Distal embolization of terminal portion of right PDA noted. 60% circumflex stenosis OM1, lad mild diffuse luminal irregularities, EF 45%. Very high troponin greater than 80 indicative of significant myocardial injury. Discussed with the patient at length. Discussed high risk 24-48 hours and high risk persistent over the next 30 days potential life-threatening or fatal ventricular arrhythmias, subsequent myocardial infarction, bleeding, etc.. Discussed importance of monitoring for next 48 hours given extensive troponin elevation. Patient verbalized understanding and agreed. All questions answered to his satisfaction. Report patient must immediate and absolutely stop smoking. He understands and agrees. Explained the importance of compliance with medications without fail. Particularly emphasized importance of compliance with aspirin and Brilinta given the risk for acute stent thrombosis and acute myocardial infarction with may be life-threatening or potentially fatal. Patient verbalized understanding agreed. Explained importance of his other medications for cardiovascular support given his high risk time post myocardial infarction. Transfer to [address] [place] [address]. Patient is ambulate with acceptable tolerance prior to discharge. 2D echocardiogram personally reviewed and discussed, EF approximately 55% with severe hypokinesis/akinesis of the inferior wall as expected. Discussed this at length with family and patient. Continue telemetry. No significant ventricular tachycardia on telemetry overnight. (2) Ischemic cardiomyopathy: Code(s): I25.5 - Ischemic cardiomyopathy Status: Acute Assessment and Plan: By left ventriculography, EF 45% with akinesis of the apex and anterolateral mixon. Optimize medical therapy. Continue losartan 12.5 mg daily, Toprol XL 25 mg daily. DVT prophylaxis with enoxaparin. Patient is well compensated. Monitor volume status. By echo, EF improved 55% with severe hypokinesis/akinesis of the inferior mixon. (3) Nonsustained ventricular tachycardia: Code(s): I47.29 - Other ventricular tachycardia Status: Acute Assessment and Plan: Brief, nonsustained asymptomatic ventricular tachycardia. Continue telemetry. Discussed with the patient. Continue Toprol XL 25 mg daily. Up titrate as warranted. No significant recurrence overnight. Continue current regimen. Will continue by school lunch monitor (4) Hypertension: Code(s): I10 - Essential (primary) hypertension Status: Acute Assessment and Plan: BP not ideally controlled but fair. Somewhat labile at times. Continue losartan but increase to 25 mg daily, Toprol XL 25 mg daily. (5) Paroxysmal atrial tachycardia: Code(s): I47.19 - Other supraventricular tachycardia Status: Acute Assessment and Plan: Asymptomatic brief episodes of paroxysmal atrial tachycardia. No AFib or a flutter observe thus far. Continue telemetry. Toprol XL 25 mg daily. No significant recurrence thus far. (6) Tobacco abuse: Code(s): Z72.0 - Tobacco use Status: Acute Assessment and Plan: As above, immediate and absolute smoking cessation recreational counselor performed. Patient verbalized understanding and agreed. Offered nicotine patch for smoking cessation a patient states he was fine did not require this at this time. (7) Mixed hyperlipidemia: Code(s): E78.2 - Mixed hyperlipidemia Status: Acute Assessment and Plan: Continue rosuvastatin 20 mg at bedtime, goal LDL less than 70
--- NOTE | 2024-02-19 16:22 | PC.NURSE ---
This patient, Norm Torres, was transferred to [212 ] on 02/19/24 at 1547. Personal belongings sent with patient. Report given to [Eddie DOTSON ]. Appropriate documentation sent with patient.
[2024-02-20] VITALS (7 sets, daily range): BP systolic 103–114; BP diastolic 58–78; PULSE 71–102; RESP 16–20; TEMP 36.4–36.8; O2SAT 94–95
[2024-02-20] MEDS: LOSARTAN POTASSIUM 25 MG TABLET PO (08:36)
[2024-02-20] MEDS: ASPIRIN 81 MG CHEWABLE TABLET PO (08:36)
[2024-02-20] MEDS: ROSUVASTATIN 20 MG TABLET PO (08:36)
[2024-02-20] MEDS: TICAGRELOR 90 MG TABLET PO (08:36)
[2024-02-20] MEDS: METOPROLOL SUCCINATE EXT REL 25 MG TABCR PO (08:36)
--- NOTE | 2024-02-20 08:52 | PM.DS ---
DS: Admitting Diagnosis Discharge Date 02/20/2024 Admitting Diagnosis STEMI DS: Discharge Diagnosis Discharge Diagnosis (1) ST elevation (STEMI) myocardial infarction: Code(s): I21.3 - ST elevation (STEMI) myocardial infarction of unspecified site Status: Acute Assessment and Plan: No prior known history of CAD presents with acute onset ST-elevation CT 100% proximal RCA occlusion with extensive thrombus burden status post 4.0 x 30 mm Medtronic olga for anterior drug-eluting stent. Distal embolization of terminal portion of right PDA noted. 60% circumflex stenosis OM1, lad mild diffuse luminal irregularities, EF 45%. Very high troponin greater than 80 indicative of significant myocardial injury. 2D echocardiogram EF approximately 55% with severe hypokinesis/akinesis of the inferior wall as expected. Continue DAPT with ASA indefinitely, Brilinta for one year Continue high intensity statin Continue aggressive risk factor modification for CAD including immediate smoking cessation No arrhythmias on telemetry overnight. Telemetry shows sinus rhythm/sinus bradycardia Cardiac rehab referral Will arrange for outpatient follow up in our office (2) Ischemic cardiomyopathy: Code(s): I25.5 - Ischemic cardiomyopathy Status: Acute Assessment and Plan: By left ventriculography, EF 45% with akinesis of the apex and anterolateral mixon. Optimize medical therapy. Continue losartan 12.5 mg daily, Toprol XL 25 mg daily. Patient is well compensated. Monitor volume status. By echo, EF improved 55% with severe hypokinesis/akinesis of the inferior mixon. (3) Nonsustained ventricular tachycardia: Code(s): I47.29 - Other ventricular tachycardia Status: Acute Assessment and Plan: Brief, nonsustained asymptomatic ventricular tachycardia. Continue telemetry. Continue Toprol XL 25 mg daily. No recurrence. (4) Hypertension: Code(s): I10 - Essential (primary) hypertension Status: Acute Assessment and Plan: At goal (5) Paroxysmal atrial tachycardia: Code(s): I47.19 - Other supraventricular tachycardia Status: Acute Assessment and Plan: Asymptomatic brief episodes of paroxysmal atrial tachycardia. No AFib or a flutter observe thus far. Continue telemetry. Toprol XL 25 mg daily. No significant recurrence thus far. (6) Tobacco abuse: Code(s): Z72.0 - Tobacco use Status: Acute Assessment and Plan: As above, immediate and absolute smoking cessation dianetic counselor performed. Patient verbalized understanding and agreed. (7) Mixed hyperlipidemia: Code(s): E78.2 - Mixed hyperlipidemia Status: Acute Assessment and Plan: Continue rosuvastatin 20 mg at bedtime, goal LDL less than 70. (8) BMI greater than 30: Status: Acute Assessment and Plan: Outpatient cardiac rehab as appropriate. Weight loss, lifestyle modifications reduction caloric intake per DS: Summary Hospital Course Hospital Course: presented 02/17/24 with chest pain and found to have acute ST-elevation CT 100% proximal RCA occlusion with extensive thrombus burden status post 4.0 x 30 mm Medtronic olga for anterior drug-eluting stent. Distal embolization of terminal portion of right PDA noted. 60% circumflex stenosis OM1, lad mild diffuse luminal irregularities, EF 45%. Very high troponin greater than 80 indicative of significant myocardial injury. 2D echocardiogram EF approximately 55% with severe hypokinesis/akinesis of the inferior wall as expected. No arrhythmias or other procedural complications. Time Spent with Patient Time attestation: Total time spent providing and/or coordinating discharge services: Exam Narrative: General: Pleasant obese Well developed, alert and oriented x3. No apparent distress, comfortable, pleasant, and cooperative. Head: atraumatic, normocephalic Eyes: EOM intact, sclerae anicteric, conjunctivae unrem
[2024-02-20] MEDS: ENOXAPARIN 40 MG/0.4 ML SYRINGE SUB-Q (08:53)
[2024-02-20] MEDS: ALBUTEROL SULFATE NEB 2.5 MG/3 ML INH INHALATION (09:22)
== END 2024-02-20 11:00 | disposition home or self-care (01) | DRG 322 ==
LOC: ANHED 15:59 → ANHICU 16:02 → ANHIMU 02-19 15:39
PROVIDERS: Internal Medicine; Internal Medicine Cardiovascular Disease; Admitting Provider Specialist; Emergency Provider Emergency Medicine; PCP Family Medicine; Visit Provider Nurse Practitioner
PROC: 4A023N7 Measurement of Cardiac Sampling and Pressure, Left Heart, Percutaneous Approach (ICD-10-PCS; CPT 93452; principal; 2024-02-17 15:45)
PROC: 027034Z Dilation of Coronary Artery, One Artery with Drug-eluting Intraluminal Device, Percutaneous Approach (ICD-10-PCS; 2024-02-17 15:45)
DX: I21.19 ST elevation (STEMI) myocardial infarction involving other coronary artery of inferior wall (principal); I47.29 Other ventricular tachycardia; I47.19 Other supraventricular tachycardia; I25.5 Ischemic cardiomyopathy; I10 Essential (primary) hypertension; J44.9 Chronic obstructive pulmonary disease, unspecified; E78.00 Pure hypercholesterolemia, unspecified; F17.210 Nicotine dependence, cigarettes, uncomplicated; Z96.649 Presence of unspecified artificial hip joint
CPT/HCPCS: 36415; 71045; 80048; 80053; 80061; 83690; 83735; 83880; 84100; 84484; 85025; 85027; 85610; 85730; 87641; 93005; 93458; 94640; 99285; A9270; C1725; C1757; C1769; C1874; C1887; C1894; C1897; C8929; C9606; J0461; J0583; J1644; J1650; J2250; J3010; J7030; L1830; Q9957

== ENCOUNTER 2024-07-16 09:54 | Outpatient (CLI) | payer OTHER, SELFPAY ==
[2024-07-16 10:55] LABS: Alanine Aminotransferase 30 U/L (6-50); Albumin Level 4.1 g/dL (3.5-5.1); Alkaline Phosphatase 78 U/L (38-126); Anion Gap 9 mmol/L (4-12); Aspartate Amino Transferase 31 U/L (17-59); Bilirubin,Total 0.5 mg/dL (0.2-1.3); Blood Urea Nitrogen 12 mg/dL (9-20); Carbon Dioxide 28 mmol/L (22-30); Chloride 102 mmol/L (98-107); Cholesterol 128 mg/dL (0-200); Estimated Glomerular Filt Rate > 60; Glucose 101 mg/dL (65-110); HDL Direct 47 mg/dL; Potassium 4.1 mmol/L (3.4-5.0); Sodium 139 mmol/L (137-145); Triglycerides 124 mg/dL (<150)
[2024-07-16 11:06] LABS: LDL Cholesterol Direct 57 mg/dL
[2024-07-16 11:07] LABS: Hematocrit 42.6 % (42.0-52.0); Hemoglobin 13.5 g/dL (14.0-18.0); Mean Corpuscular HGB Conc 31.7 g/dl (32-36); Mean Corpuscular Hemoglobin 29.3 pg (26-34); Mean Corpuscular Volume 92.4 fl (80-100); Platelet Count Result 209 k/mm3 (150-375); Red Blood Count 4.61 M/mm3 (4.6-6.20); Red Cell Distribution Width 13.7 % (11.5-14.5); White Blood Count 8.8 K/mm3 (4.5-10.0)
[2024-07-16 11:24] LABS: Thyroid Stimulating Hormone 0.739 uIU/mL (0.465-4.680); Vitamin D 25 Hydroxy 24.1 ng/mL
[2024-07-16 11:47] LABS: Hemoglobin A1C 6.3 % (<5.7)
[2024-07-16 14:32] LABS: Iron 92 ug/dL (49-181)
[2024-07-16 14:45] LABS: Percent Iron Saturation 28 % (20-50)
[2024-07-16 15:25] LABS: Prostate Specific Antigen 0.8 ng/mL (< OR = 4.0)
[2024-07-21 09:18] LABS: Testosterone Free 51.7 pg/mL (35.0-155.0); Testosterone Total 284 ng/dL (250-1100)
== END 2024-07-16 09:55 | disposition home or self-care (01) ==
LOC: ANHLAB 10:10
PROVIDERS: PCP Family Medicine; Visit Provider Family Medicine
DX: Z12.5 Encounter for screening for malignant neoplasm of prostate (principal); Z13.220 Encounter for screening for lipoid disorders; E55.9 Vitamin D deficiency, unspecified; R79.89 Other specified abnormal findings of blood chemistry; E53.8 Deficiency of other specified B group vitamins; I10 Essential (primary) hypertension; N53.9 Unspecified male sexual dysfunction; D64.9 Anemia, unspecified; R73.09 Other abnormal glucose; E78.2 Mixed hyperlipidemia; N28.9 Disorder of kidney and ureter, unspecified
CPT/HCPCS: 36415; 80048; 80061; 80076; 82306; 82607; 82728; 83036; 83540; 83550; 84153; 84402; 84403; 84443; 85027; G0103

== ENCOUNTER 2024-07-17 14:53 | Outpatient (CLI) | payer OTHER, SELFPAY ==
--- NOTE | ~2024-07-17 | CT_ITS ---
EXAMINATION:CT lung screening DATE: 07/17/2024 15:04 INDICATION: Persistently of nicotine dependence. Current smoker with 80 pack year history. TECHNIQUE: Computed tomography (CT) of the chest was performed without intravenous contrast. Automate d exposure control and iterative reconstruction technique were employed. The dose-length product (DLP ) was 235.09 mGy-cm. COMPARISON: Chest 2 views 02/17/2024 FINDINGS: There is mild emphysema. There is an 11 mm nodule in right upper lobe. A calcified left sana g nodule and calcified left hilar and mediastinal lymph nodes are consistent with old granulomatous d isease. No pleural effusion. The heart size is normal. There are coronary artery calcifications. Ther e are calcifications of the aortic valve. No pericardial effusion. Calcifications in the liver and sp sergio are consistent with old granulomatous disease. There are bridging endplate osteophytes at multip le levels in the spine, consistent with diffuse idiopathic skeletal hyperostosis (DISH). IMPRESSION: 1. Lung-RADS category 4A: Suspicious. PET/CT or 3 month noncontrast low-dose chest CT is recommended. Reviewed, dictated and finalized at location A. IMPRESSION: 1. Lung-RADS category 4A: Suspicious. PET/CT or 3 month noncontrast low-dose ch est CT is recommended.
== END 2024-07-17 14:54 ==
LOC: MICIMG 14:54
PROVIDERS: PCP Nurse Practitioner Family; Visit Provider Nurse Practitioner Family
DX: Z12.2 Encounter for screening for malignant neoplasm of respiratory organs (principal); R91.8 Other nonspecific abnormal finding of lung field; Z87.891 Personal history of nicotine dependence
CPT/HCPCS: 71271

== ENCOUNTER 2024-11-02 08:10 | Outpatient (CLI) | payer OTHER, SELFPAY ==
--- NOTE | ~2024-11-02 | CT_ITS ---
CT Scan of the Chest without Contrast: Clinical Indication: Pulmonary nodule Technique: Contiguous sections were acquired throughout the chest without intravenous contrast. Dose reduction technique was used on this scan by utilizing automated exposure control and iterative recon struction technique. The dose-length product (DLP) was 294.18 mGy-cm. COMPARISON: 07/17/2024 Findings: There is no evidence of any significant mediastinal, hilar or axillary lymphadenopathy. Coronary rashi ry calcification are present. Calcified left paratracheal node present.. There is no evidence of pleural or pericardial effusion. Stable 12 mm right upper lobe pulmonary nodule peripherally (axial image 52). Stable calcified left l ower lobe granuloma. Images through the upper abdomen reveal no abnormalities. There is extensive DISH of the spine. Impression: Stable 12 mm right upper lobe pulmonary nodule. Reviewed, dictated and finalized at [facility]. 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
== END 2024-11-02 08:11 | disposition home or self-care (01) ==
LOC: MICIMG 08:11
PROVIDERS: PCP Family Medicine; Visit Provider Nurse Practitioner Family
DX: R91.1 Solitary pulmonary nodule (principal)
CPT/HCPCS: 71250

== ENCOUNTER 2024-12-26 09:34 | Outpatient (CLI) | payer OTHER, SELFPAY ==
--- OUTSIDE RECORDS SUMMARY | 2024-12-26 08:36 | XMS_ITS | Continuity of Care Document ---
Author Organization [facility] Address [address] [place] [address] [address] [place] [address] Phone Care Team Providers Care Linen Tech Name Role Phone Gela Solo Unavailable Unavailable Advance Directives Directive Yes / No Effective Date File Name No Information Encounters Encounter Description Practice Location Reason(s) For Visit Diagnoses Date Provider Providers Copied on Encounter [facility], [id number] [place] [address] [address], [place], [place], [id number], [place] tel:[phone] [facility] No Information [address] [facility] , [address], [place], [address], [place]. tel:[phone] Family History Family Member Type Diagnosis Age At Onset No Information Payers Payer name Insurance type Covered libertarian ID Authoriza tion(s) No Information Social History Type Description Quantity Date Captured Comments Sex Male Smoking Status No Information Chief Complaint And Reason For Visit No Information Reason For Referral Reason For Referral No Information History Of Present Illness Encounter Date Complaint History Of Prese nt Illness No Information Functional Status Date Functional Assessmen t No Information Instructions Date Instruction Additional Infor mation No Information Assessments Type Assessment Date No Information Patient Care Teams Name Effective Dates (start - stop) Status Members No Information
[2024-12-26 09:55] LABS: Hemoglobin 14.2 g/dL (14.0-18.0)
--- OUTSIDE RECORDS SUMMARY | 2024-12-26 10:12 | XMS_ITS | Continuity of Care Document ---
Author Organization [facility] Address [address] [place] [address] [address] [place] [address] Phone Care Team Providers Care Supervisor Firearms Name Role Phone Gela Solo Unavailable Unavailable Advance Directives Directive Yes / No Effective Date File Name No Information Encounters Encounter Description Practice Location Reason(s) For Visit Diagnoses Date Provider Providers Copied on Encounter [facility], [id number] [place] [address] [address], [place], [place], [id number], [place] tel:[phone] [address] [facility] No Information [address] [facility] , [address], [place], [address], [place]. tel:[phone] Family History Family Member Type Diagnosis Age At Onset No Information Payers Payer name Insurance type Covered constitution party ID Authoriza tion(s) No Information Social History [...]
[2024-12-26 10:13] LABS: Anion Gap 6 mmol/L (4-12); Blood Urea Nitrogen 10 mg/dL (9-20); Calcium 9.2 mg/dL (8.4-10.2); Carbon Dioxide 31 mmol/L (22-30); Chloride 103 mmol/L (98-107); Estimated Glomerular Filt Rate > 60; Glucose 108 mg/dL (65-110); Potassium 4.4 mmol/L (3.4-5.0); Sodium 140 mmol/L (137-145)
[2024-12-26 10:52] LABS: Vitamin D 25 Hydroxy 29.3 ng/mL
--- NOTE | 2024-12-26 18:04 | WPDPFTINT ---
PFT Procedure Performed PFT Procedure Performed Spirometry with Pre/Post Bronchodilator Plethysmography (Lung Vol) Diffusing Cap (DLCO) Flow Vol Loop PFT Interpretation This is a pulmonary function test with pre and post-bronchodilator spirometry, plethysmography and diffusing capacity. The test was performed and results interpreted in accordance with the 2019 and 2005 ATS/ERS Task Force guidelines respectively using the Global Lung Function Initiative-2012 reference equations. Patient demonstrated good effort and cooperation. Reproducibility criteria were met. The quality of the pre bronchodilator spirometry maneuver was Grade B and post bronchodilator spirometry maneuver was Grade A. Findings: Spirometry: There is decreased maximal expiratory airflow at all lung volumes with concave expiratory flow tracing. The contour the inspiratory flow tracing is normal. The pre bronchodilator FVC is 2.49 L, 57% predicted. The pre bronchodilator FEV1 is 1.55 L, 47% predicted. The pre bronchodilator FEV1: FVC ratio 62%. The post bronchodilator FVC is 2.90 L, representing a 16% increase. The post bronchodilator FEV1 is 1.82 L, representing an 18% increase. The post bronchodilator FEV1: FVC ratio 63%. Plethysmography: The total lung capacity is 7.88 L, 112% predicted. The functional residual capacity is 4.33 L, 116% predicted. The residual volume is 4.25 L, 176% predicted. The residual volume: Total lung capacity ratio is 54%. Diffusing capacity: The diffusing capacity unadjusted for hemoglobin and carboxyhemoglobin is 13.2, 49% predicted. The diffusing capacity adjusted for alveolar volume is 4.47, 112% predicted. Impression: There is a severe obstructive abnormality. There is significant improvement after inhaling a single dose of albuterol. The increase in residual volume to total lung volume ratio is consistent with hyperinflation from an obstructive abnormality. The diffusing capacity unadjusted for hemoglobin and carboxyhemoglobin is moderately decreased and normalizes when adjusted for alveolar volume. There are no prior studies for comparison
== END 2024-12-26 09:35 | disposition home or self-care (01) ==
PROVIDERS: PCP Family Medicine; Visit Provider Family Medicine
DX: J43.9 Emphysema, unspecified (principal); D64.9 Anemia, unspecified; E55.9 Vitamin D deficiency, unspecified; R79.89 Other specified abnormal findings of blood chemistry; E53.8 Deficiency of other specified B group vitamins; N28.9 Disorder of kidney and ureter, unspecified
CPT/HCPCS: 36415; 80048; 82306; 82607; 84402; 84403; 85014; 85018; 94060; 94726; 94729

== ENCOUNTER 2025-01-24 11:15 | Outpatient (RCR) | payer OTHER, SELFPAY ==
[2024-10-05 15:16] VITALS: BP 108/60; PULSE 102; RESP 16; O2SAT 94
== END 2025-01-28 07:28 | disposition home or self-care (01) ==
LOC: ANHCPREHAB 11:15
PROVIDERS: PCP Nurse Practitioner Family; Visit Provider Specialist
DX: Z95.5 Presence of coronary angioplasty implant and graft (principal)
CPT/HCPCS: 93798

== ENCOUNTER 2025-02-26 12:27 | Emergency (ER) | payer OTHER, SELFPAY ==
[2025-02-26 12:30] VITALS: BP 122/65; PULSE 106; RESP 20; TEMP 36.9; O2SAT 97
--- NOTE | 2025-02-26 12:34 | ECG_ITS ---
Test Date: 2025-02-26 12:48:40 Measurements Intervals Hubert Rate: 95 P: 39 VA: 196 QRS: 35 QRSD: 89 T: -52 QT: 340 QTc: 429 Interpretive Statements SINUS RHYTHM MINIMAL Q WAVES- ANTEROLATERAL LEADS INFERIOR INFARCT, AGE INDETERMINATE BORDERLINE ST-T WAVE ABNORMALITY- LAT/HIGH LAT LEADS BASELINE ARTIFACT- I, II, III, AVR, AVL,A VF, V1, V4-V6 ABNORMAL ECG No previous ECG available for comparison Electronically Signed On 02-26-2025 12:57:07 CDT by Jason Rubio D.O.
--- NOTE | 2025-02-26 12:45 | ED.EXTPRO ---
HPI - Extremity Problem General Chief complaint: Extremity Problem,Nontraumatic <Kandice Monteiro PA-C - Last Filed: 03/01/25 17:32> Stated complaint: swollen ankles, intermittent cyanotic big toes <Kandice Monteiro PA-C - Last Filed: 03/01/25 17:32> Time Seen by Provider: 02/26/25 12:45 <Kandice Monteiro PA-C - Last Filed: 03/01/25 17:32> Focused HPI: This is a 69 year old male that presents to the ER for swollen ankles, blue toes, paresthesias in his feet. Ongoing over the last month. He is a smoker. History of CAD. No known history of PAD. Patient endorses shortness of breath. GENERAL: Well-appearing, well-nourished, and in no acute distress. HEAD: Normocephalic, atraumatic. CHEST: Clear to auscultation. ?No respiratory distress. HEART: Regular rate and rhythm.? NEURO: ?Alert and oriented x3. Patient screened in triage and initial orders placed.? ?Additional care and disposition to be based upon?diagnostic testing and treatment. <Kandice Monteiro PA-C - Last Filed: 03/01/25 17:32> History of Present Illness HPI Narrative: Agree with the above with the following additions/corrections: Patient (indigo Posadas ) presents with bilateral swollen ankles and intermittently cyanotic great toes. Has leg pain. Previously smoked 2 PPD but has been cutting down to 1/3 PPD currently. Had a period of smoking cessation once for 1 month using the patch. Describes orthopnea but no paroxysmal nocturnal dyspnea and no claudication symptoms. Has been mouth breathing more so feels like he has cotton mouth. Complaining of SOB with exertion, on a diuretic. On anticoagualation but can't name what. Had stents placed last year. Unknown if he has been diagnosed with heart failure. Denies chest pain. <Kenya Lopez MD - Last Filed: 02/28/25 01:28> Related Data Home medications: Home Medications ?Medication ?Instructions ?Recorded ?Confirmed ?Last Taken ?Type latanoprost 0.005 % eye drops 1 drp EACH EYE QPM 05/29/24 12/11/24 Unknown History <Kandice Monteiro PA-C - Last Filed: 03/01/25 17:32> Allergies/Adverse reactions: Allergies Allergy/AdvReac Type Severity Reaction Status Date / Time No Known Allergies Allergy Verified 12/11/24 07:54 <Kandice Monteiro PA-C - Last Filed: 03/01/25 17:32> Review of Systems Review of Systems: All systems reviewed & are unremarkable except as noted in HPI and below <Kandice Monteiro PA-C - Last Filed: 03/01/25 17:32> [facility], [facility] Past Medical History Medical History: Medical History Ecchymosis Anemia Erectile dysfunction Puncture wound, hand Dermatitis COPD (chronic obstructive pulmonary disease) High risk sexual behavior Cough Numbness of toes Neck pain Screening PSA (prostate specific antigen) <MAGNOLIA Reed Last Filed: 03/01/25 17:32> Surgical History Surgical History: Surgical History H/O heart artery stent 2023 Status post left rotator cuff repair History of hip surgery (~2017) hip replacement <MAGNOLIA Reed Last Filed: 03/01/25 17:32> Family History Family History: Family History Mother Family history of glaucoma Hypertension Father Family history of malignant neoplasm Alzheimer's disease Sibling , lung cancer No problems noted. <Kandice Monteiro PA-C - Last Filed: 03/01/25 17:32> Social History Social History: Social History Smoking packs per day: 2 Smoking cigarettes per day: 40.0 Years smoked: 45 Smoking pack-years: 90.00 Smoking status: Former smoker Tobacco type: cigarettes Second hand tobacco smoke exposure: No Additional smoking assessment comments: SMOKING LESS RECENTLY, from 2 PPD to 1/3 (45 years smoked) Alcohol intake: current Drinks per week: 3 Alcohol use details: SOCIAL DRINKER Substance use: former Substance use type: former substance user and marijuana Do You Feel Safe in your Home?: Yes Lack of Transportation: No Lack of Food: Never True Current Housing: I Have Housing Concerned About Future Housing: No Difficulty Paying Gas/Electric Bills: No Difficulty Paying for Meds: No Currently Unemployed: No Education: High School Diploma/GED Difficulty w/ Childcare or Family Care: No Living arrangements: alone Occupation/Education: retired 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 HEAD: Normocephalic, atraumatic. EYES: Non injected, non icteric ENT: Nares clear, no rhinorrhea or epistaxis. NECK: Supple. CHEST: Speaking in full sentences. No respiratory distress. Lungs clear at the apices but diminished at based. HEART: Regular rate and rhythm. . ABDOMEN: Protuberant but Soft, nondistended. EXTREMITIES: Normal range of motion. 1+ bilateral lower extremity edema. Toes are not ecchymotic presently. SKIN: Warm, dry, no rash. NEURO: No focal deficits. Alert and oriented x3. PSYCH: Normal mood and affect. <Kenya Lopez MD - Last Filed: 02/28/25 01:28> Course Vital Signs Vital signs: Vital Signs Temperature 98.5 F 02/26/25 12:30 Pulse Rate 106 H 02/26/25 12:30 Respiratory Rate 20 02/26/25 12:30 Blood Pressure 122/65 02/26/25 12:30 Pulse Oximetry 97 02/26/25 12:30 Oxygen Delivery Room Air 02/26/25 12:30 Temperature 98.5 F 02/26/25 12:30 Pulse Rate 88 02/26/25 15:35 Respiratory Rate 14 02/26/25 15:35 Blood Pressure 110/82 02/26/25 15:35 Pulse Oximetry 100 02/26/25 15:35 Oxygen Delivery Room Air 02/26/25 15:35 <Kandice Monteiro PA-C - Last Filed: 03/01/25 17:32> Vital Signs Temperature 98.5 F 02/26/25 12:30 Pulse Rate 106 H 02/26/25 12:30 Respiratory Rate 20 02/26/25 12:30 Blood Pressure 122/65 02/26/25 12:30 Pulse Oximetry 97 02/26/25 12:30 Oxygen Delivery Room Air 02/26/25 12:30 Temperature 98.5 F 02/26/25 12:30 Pulse Rate 88 02/26/25 15:35 Respiratory Rate 14 02/26/25 15:35 Blood Pressure 110/82 02/26/25 15:35 Pulse Oximetry 100 02/26/25 15:35 Oxygen Delivery Room Air 02/26/25 15:35 <Kenya Lopez MD - Last Filed: 02/28/25 01:28> MDM - Extremity (Nontraumatic) MDM Narrative Medical decision making narrative: Patient presents with report o fbilateral ankle swelling, AGUILAR, and intermittently cyanotic great toes bilaterally. And in the emergency department he is afebrile with vital signs notable for tachycardia. Normal troponin. BNP is slightly elevated but not to a degree to his suggest acute heart failure based on the reference range of the assay for patient's age. Smoking Cessation: Currently smokes: 1/3 PPD (down from 2 PPD). 1 prior period of quitting. Reasons to quit smoking: Health, money, to live long enough and collect from the money I paid into the system. The patient was counseled that smoking tobacco has been short long-term negative health effects and the patient should attempt to stop smoking as 1 most important things they can do to improve her health now and in the future. A scale of 0 (never) to 10 (extremely ready) to quit, patient is: 10. 4 Minutes spent counseling patient regarding quitting smoking to improve overall health. Patient declined initial 2 view CXR and declines 1 view as well. I am informed by RN that patient got frustrated and left. Although patient left without completing treatment/work up, will still prescribe nicotine patch in the hopes patient still picks up the prescription and considers stopping smoking. DISPOSITION CONDITION: STABLE <Kenya Loepz MD - Last Filed: 02/28/25 01:28> Differential Diagnosis Differential diagnosis: Likely lower extremity edema, deep vein thrombosis of lower extremity and other (PAD/vascular disease; heart failure; rhabdomyolysis; symptomatic anemia; electrolyte abnormalities) <Kenya Lopez MD - Last Filed: 02/28/25 01:28> Lab Data Attestation: I reviewed the patient's lab results. <Kenya Lopez MD - Last Filed: 02/28/25 01:28> Result diagrams: 02/26/25 12:57 02/26/25 12:57 <Kandice Monteiro PA-C - Last Filed: 03/01/25 17:32> Labs: Lab Results 02/26/25 02/26/25 Range/Units 12:57 16:07 WBC 8.4 (4.5-10.0) K/mm3 RBC 4.77 (4.6-6.20) M/mm3 Hgb 14.1 (14.0-18.0) g/dL Hct 43.7 (42.0-52.0) % MCV 91.6 (80-100) fl MCH 29.6 (26-34) pg MCHC 32.3 (32-36) g/dl RDW 13.3 (11.5-14.5) % Plt Count 231 (150-375) k/mm3 MPV 10.2 (7.4-10.4) fl Immature Gran % (Auto) 0.2 (0-0.5) % Neut % (Auto) 56.9 (45.5-73.1) % Lymph % (Auto) 33.7 (18.3-44.2) % Duchesne % (Auto) 8.1 (2.6-8.5) % Eos % (Auto) 0.7 (0-4.4) % Baso % (Auto) 0.4 (0.2-1.2) % Lymph # (Auto) 2.82 (0.9-3.2) K/mm3 Duchesne # (Auto) 0.7 H (0.1-0.6) K/mm3 Eos # (Auto) 0.1 (0-0.3) K/mm3 Baso # (Auto) 0.0 (0.0-0.1) K/mm3 Abs Immat Gran (auto) 0.02 (0.00-0.031) K/mm3 Absolute Neuts (auto) 4.8 (1.3-6.7) K/mm3 Absolute Nucleated RBC 0.000 (0.0-0.012) K/mm3 Nucleated RBC % 0.0 (0.0-0.2) % PT 13.5 (11.1-14.7) Seconds INR 1.0 APTT 23.4 (22.3-36.8) Seconds D-Dimer 0.39 (<0.48) ug/mL Sodium 138 (137-145) mmol/L Potassium 4.2 (3.4-5.0) mmol/L Chloride 102 (98-107) mmol/L Carbon Dioxide 29 (22-30) mmol/L Anion Gap 7 (4-12) mmol/L BUN 17 (9-20) mg/dL Creatinine 1.01 (0.7-1.3) mg/dL Estim Creat Clear Calc 76 ml/min Estimated GFR > 60 (59 - ) Glucose 133 H (65-110) mg/dL Calcium 9.1 (8.4-10.2) mg/dL Magnesium 1.9 (1.6-2.3) mg/dL Total Bilirubin 0.5 (0.2-1.3) mg/dL AST 24 (17-59) U/L ALT 29 (6-50) U/L Alkaline Phosphatase 82 (38-126) U/L Total Creatine Kinase 149 (55-170) U/L Troponin I < 0.012 (0.000-0.034) ng/mL NT-Pro-B Natriuret Pep 480 H (19.9-100) pg/mL Total Protein 7.0 (6.3-8.2) g/dL Albumin 4.2 (3.5-5.1) g/dL Influenza A (RT-PCR) Negative (Negative) Influenza B (RT-PCR) Negative (Negative) RSV (RT-PCR) Negative (Negative) SARS-CoV-2 RNA (RT-PCR) Negative (Negative) <Kandice Monteiro PA-C - Last Filed: 03/01/25 17:32> Lab Results 02/26/25 02/26/25 Range/Units 12:57 16:07 WBC 8.4 (4.5-10.0) K/mm3 RBC 4.77 (4.6-6.20) M/mm3 Hgb 14.1 (14.0-18.0) g/dL Hct 43.7 (42.0-52.0) % MCV 91.6 (80-100) fl MCH 29.6 (26-34) pg MCHC 32.3 (32-36) g/dl RDW 13.3 (11.5-14.5) % Plt Count 231 (150-375) k/mm3 MPV 10.2 (7.4-10.4) fl Immature Gran % (Auto) 0.2 (0-0.5) % Neut % (Auto) 56.9 (45.5-73.1) % Lymph % (Auto) 33.7 (18.3-44.2) % Duchesne % (Auto) 8.1 (2.6-8.5) % Eos % (Auto) 0.7 (0-4.4) % Baso % (Auto) 0.4 (0.2-1.2) % Lymph # (Auto) 2.82 (0.9-3.2) K/mm3 Duchesne # (Auto) 0.7 H (0.1-0.6) K/mm3 Eos # (Auto) 0.1 (0-0.3) K/mm3 Baso # (Auto) 0.0 (0.0-0.1) K/mm3 Abs Immat Gran (auto) 0.02 (0.00-0.031) K/mm3 Absolute Neuts (auto) 4.8 (1.3-6.7) K/mm3 Absolute Nucleated RBC 0.000 (0.0-0.012) K/mm3 Nucleated RBC % 0.0 (0.0-0.2) % PT 13.5 (11.1-14.7) Seconds INR 1.0 APTT 23.4 (22.3-36.8) Seconds D-Dimer 0.39 (<0.48) ug/mL Sodium 138 (137-145) mmol/L Potassium 4.2 (3.4-5.0) mmol/L Chloride 102 (98-107) mmol/L Carbon Dioxide 29 (22-30) mmol/L Anion Gap 7 (4-12) mmol/L BUN 17 (9-20) mg/dL Creatinine 1.01 (0.7-1.3) mg/dL Estim Creat Clear Calc 76 ml/min Estimated GFR > 60 (59 - ) Glucose 133 H (65-110) mg/dL Calcium 9.1 (8.4-10.2) mg/dL Magnesium 1.9 (1.6-2.3) mg/dL Total Bilirubin 0.5 (0.2-1.3) mg/dL AST 24 (17-59) U/L ALT 29 (6-50) U/L Alkaline Phosphatase 82 (38-126) U/L Total Creatine Kinase 149 (55-170) U/L Troponin I < 0.012 (0.000-0.034) ng/mL NT-Pro-B Natriuret Pep 480 H (19.9-100) pg/mL Total Protein 7.0 (6.3-8.2) g/dL Albumin 4.2 (3.5-5.1) g/dL Influenza A (RT-PCR) Negative (Negative) Influenza B (RT-PCR) Negative (Negative) RSV (RT-PCR) Negative (Negative) SARS-CoV-2 RNA (RT-PCR) Negative (Negative) <Kenya Lopez MD - Last Filed: 02/28/25 01:28> ECG Data EKG #1: Attestation EKG: I personally reviewed and interpreted this ECG as follows: <Kenya Lopez MD - Last Filed: 02/28/25 01:28> ECG completion date: 02/26/25 <Kenya Lopez MD - Last Filed: 02/28/25 01:28> ECG completion time: 12:48 <Kenya Lopez MD - Last Filed: 02/28/25 01:28> Interpretation: Normal sinus rhythm at a rate of 95 beats per minute. FL interval 196. QRS 89. QT/QTC 340/393. Good R-wave progression across the precordial leads. T-wave inversions in the inferior leads. Also T-wave inversions in lateral precordial leads V5 and V6. <Kenya Lopez MD - Last Filed: 02/28/25 01:28> Critical Care Time Critical Care Time Critical Care Time: No <Kandice Monteiro PA-C - Last Filed: 03/01/25 17:32> Discharge Plan Discharge Clinical Impression: Encounter for smoking cessation counseling Nicotine dependence Qualifiers: Nicotine product type: cigarettes Substance use status: uncomplicated Qualified Code(s): F17.210 - Nicotine dependence, cigarettes, uncomplicated <Kandice Monteiro PA-C - Last Filed: 03/01/25 17:32> Patient Disposition: Elopement After Seen by Prov <Kandice Monteiro PA-C - Last Filed: 03/01/25 17:32> Patient Language: Finnish <Kandice Monteiro PA-C - Last Filed: 03/01/25 17:32> Prescriptions: New nicotine 21 mg/24 hr patch 24 hour 1 patch transdermal DAILY Qty: 28 0RF No Action latanoprost 0.005 % drops 1 drp EACH EYE QPM cholecalciferol (vitamin D3) 125 mcg (5,000 unit) capsule 125 mcg PO DAILY Qty: 90 0RF cyanocobalamin (vitamin B-12) [Vitamin B-12] 1,000 mcg tablet 1,000 mcg PO DAILY Qty: 90 0RF aspirin [Children's Aspirin] 81 mg Tablet,Chewable 81 mg PO DAILY@0800 30 Days Qty: 30 11RF losartan 25 mg Tablet 25 mg PO DAILY 30 Days Qty: 30 3RF metoprolol succinate [Toprol XL] 25 mg Tablet Extended Release 24 Hr 25 mg PO QAM 30 Days Qty: 30 3RF rosuvastatin 20 mg Tablet 20 mg PO DAILY 30 Days Qty: 30 11RF Brilinta 90 mg Tablet 90 mg PO Q12HR 30 Days Qty: 60 11RF <Kandice Monteiro PA-C - Last Filed: 03/01/25 17:32> Follow-up/Referrals: Jovany Hernandez MD [Primary Care Provider] - <Kandice Monteiro PA-C - Last Filed: 03/01/25 17:32>
[2025-02-26 13:06] LABS: Basophils Percent Auto 0.4 % (0.2-1.2); Eosinophils Absolute Auto 0.1 K/mm3 (0-0.3); Eosinophils Percent Auto 0.7 % (0-4.4); Hematocrit 43.7 % (42.0-52.0); Hemoglobin 14.1 g/dL (14.0-18.0); Immature Granulocyte Absolute 0.02 K/mm3 (0.00-0.031); Immature Granulocyte Percent A 0.2 % (0-0.5); Lymphocytes Absolute Auto 2.82 K/mm3 (0.9-3.2); Lymphocytes Percent Auto 33.7 % (18.3-44.2); Mean Corpuscular HGB Conc 32.3 g/dl (32-36); Mean Corpuscular Hemoglobin 29.6 pg (26-34); Mean Corpuscular Volume 91.6 fl (80-100); Mean Platelet Volume 10.2 fl (7.4-10.4); Monocytes Absolute Auto 0.7 K/mm3 (0.1-0.6); Monocytes Percent Auto 8.1 % (2.6-8.5); Neutrophils Absolute Auto 4.8 K/mm3 (1.3-6.7); Neutrophils Percent Auto 56.9 % (45.5-73.1); Platelet Count Result 231 k/mm3 (150-375); Red Blood Count 4.77 M/mm3 (4.6-6.20); Red Cell Distribution Width 13.3 % (11.5-14.5); White Blood Count 8.4 K/mm3 (4.5-10.0)
[2025-02-26 13:17] LABS: Alanine Aminotransferase 29 U/L (6-50); Albumin Level 4.2 g/dL (3.5-5.1); Alkaline Phosphatase 82 U/L (38-126); Anion Gap 7 mmol/L (4-12); Aspartate Amino Transferase 24 U/L (17-59); Bilirubin,Total 0.5 mg/dL (0.2-1.3); Blood Urea Nitrogen 17 mg/dL (9-20); Calcium 9.1 mg/dL (8.4-10.2); Carbon Dioxide 29 mmol/L (22-30); Chloride 102 mmol/L (98-107); Estimated CRCL calculation 76 ml/min; Estimated Glomerular Filt Rate > 60; Glucose 133 mg/dL (65-110); Potassium 4.2 mmol/L (3.4-5.0); Sodium 138 mmol/L (137-145)
[2025-02-26 13:27] LABS: Prothrombin Time 13.5 Seconds (11.1-14.7)
[2025-02-26 13:28] LABS: Partial Thromboplastin Time 23.4 Seconds (22.3-36.8)
[2025-02-26 13:29] LABS: NT Pro B Type Natriuretic Pept 480 pg/mL (19.9-100); Troponin I < 0.012 ng/mL (0.000-0.034)
--- OUTSIDE RECORDS SUMMARY | 2025-02-26 13:32 | XMS_ITS | Continuity of Care Document ---
Author Organization [facility] Address [address] [place] [address] [address] [place] [address] Phone Care Team Providers Care Baffle Installer Name Role Phone Gela Solo Unavailable Unavailable Advance Directives Directive Yes / No Effective Date File Name No Information Encounters Encounter Description Practice Location Reason(s) For Visit Diagnoses Date Provider Providers Copied on Encounter [facility], [id number] [place] [address] [address], [place], [place], [id number], [place] tel:[phone] [facility] No Information [address] [facility] , [address], [place], [address], [place]. tel:[phone] Family History Family Member Type Diagnosis Age [...]
--- OUTSIDE RECORDS SUMMARY | 2025-02-26 14:35 | XMS_ITS | Continuity of Care Document ---
Author Organization [facility] Address [address] [place] [address] [address] [place] [address] Phone Care Team Providers Care Sternman Name Role Phone Gela Solo Unavailable Unavailable Advance Directives Directive Yes / No Effective Date File Name No Information Encounters Encounter Description Practice Location Reason(s) For Visit Diagnoses Date Provider Providers Copied on Encounter [facility], [id number] [place] [address] [address], [place], [place], [id number], [place] tel:[phone] [facility] No Information [address] [facility] , [address], [place], [address], [place]. tel:[phone] Family History Family Member Type Diagnosis Age [...]
[2025-02-26 14:52] VITALS: BP 104/77; PULSE 95; RESP 16; O2SAT 97
--- NOTE | 2025-02-26 14:57 | PC.NURSE ---
pt pleasantly refusing offer of chest xray, order to be cancelled
[2025-02-26 15:35] VITALS: BP 110/82; PULSE 88; RESP 14; O2SAT 100
--- NOTE | 2025-02-26 15:35 | PC.NURSE ---
Pt offered gown by this RN, pt states he does not want to wear one
[2025-02-26 16:09] LABS: Creatine Kinase 149 U/L (55-170); Magnesium 1.9 mg/dL (1.6-2.3)
--- NOTE | 2025-02-26 16:24 | PC.NURSE ---
Pt refusing chest XR. EDP made aware.
[2025-02-26 16:49] LABS: Influenza A QL RT-PCR Negative (Negative); Influenza B QL RT-PCR Negative (Negative); RSV RNA, RT-PCR Negative (Negative); SARS-CoV-2 RNA PCR Negative (Negative)
--- NOTE | 2025-02-26 16:52 | PC.NURSE ---
Pt states, They're not going to do diddly squat for me so I'm leavin'. Pt then ambulated out of ER with stead gait.
[2025-02-26 16:55] LABS: D Dimer 0.39 ug/mL (<0.48)
== END 2025-02-26 16:53 | disposition left against medical advice (07) ==
PROVIDERS: Emergency Medicine; Emergency Provider Student in an Organized Health Care Education/Training Program; PCP Family Medicine
DX: M25.471 Effusion, right ankle (principal); M25.472 Effusion, left ankle; F17.210 Nicotine dependence, cigarettes, uncomplicated; Z20.822 Contact with and (suspected) exposure to COVID-19; D64.9 Anemia, unspecified; J44.9 Chronic obstructive pulmonary disease, unspecified; R94.31 Abnormal electrocardiogram [ECG] [EKG]; R06.02 Shortness of breath
CPT/HCPCS: 36415; 80053; 82550; 83735; 83880; 84484; 85025; 85380; 85610; 85730; 87637; 93005; 99284

== ENCOUNTER 2025-08-19 09:34 | Outpatient (CLI) | payer OTHER, SELFPAY ==
--- OUTSIDE RECORDS SUMMARY | 2025-08-19 10:02 | XMS_ITS | Clinical Summary ---
Author Organization [facility] Address [address] [place] [address] Care Team Providers Care Vehicle Inspector Name Role Phone Jovany Hernandez MD Primary Care Provider Allergies No known active allergies Medications triamcinolone (KENALOG) 0.1 % cream Apply topically 2 (two) times a day as needed for irritation (Rash) 454 g 1 10/24/20 23 Active aspirin 81 mg enteric coated tablet Take 1 tablet (81 mg total) by mouth daily Active latanoprost (XALATAN) 0.005 % ophthalmic solution 08/24/20 24 Active amoxicillin-cl avulanate (AUGMENTIN) 875-125 mg per tablet Take 1 tablet by mouth 2 (two) times a day 10/17/20 24 Active clobetasoL (TEMOVATE) 0.05 % ointment Apply topically 2 (two) times a day as needed (Rash (lower legs)) 30 g 2 10/24/20 24 Active rosuvastatin (CRESTOR) 20 mg tablet Take 1 tablet by mouth once daily 90 tablet 1 05/28/20 25 Active losartan (COZAAR) 25 mg tablet Take 1 tablet by mouth once daily 90 tablet 1 06/25/20 25 Active Brilinta 90 mg tablet Take 1 tablet (90 mg total) by mouth 2 (two) times a day 180 tablet 2 07/09/20 25 Active metoprolol XL (TOPROL-XL) 25 mg extended release tablet TAKE 1 TABLET BY MOUTH IN THE MORNING 90 tablet 07/26/20 25 Active metoprolol XL (TOPROL-XL) 25 mg extended release tablet TAKE 1 TABLET BY MOUTH IN THE MORNING 90 tablet 3 06/21/20 24 025 Discontinued Active Problems Problem Noted Date Diagnosed Date Coronary artery disease invo lving iroquois coronary artery of iroquois heart without angina pectoris 09/19/2024 Dyspnea on exertion 09/19/2024 Tobacco dependence 09/19/2024 Encounters Date Type Department Care Team Description 07/09/2025 Telephone [facility] Cardiology [address] [place] [address] Maximo Parkinson MD 06/08/2025 Telephone [facility] Cardiology [address] [place] [address] Maximo Parkinson MD Med Refill from Last 3 Months Surgical History Surgery Date Site/Laterality Comments REVISION TOTAL HIP ARTHROPLASTY ROTATOR CUFF REPAIR Medical History Medical History Date Comments Hyperlipidemia Family History Medical History Relation Name Comments Lung cancer Brother Relation Name Status Comments Brother Father Mother Social History Tobacco Use Types Packs/Day Years Used Date Smoking Tobacco: Every Day Cigarettes Passive Smoke Exposure: Never Smokeless Tobacco: Never Tobacco Cessation:Ready to Q uit: Not Asked; Counseling Given: Not Answered Sex and Gender Information Value Date Recorded Sex Assigned at Not on file 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 Gender Identity Not on file Sexual Orientation Not on file Obstetrics History Last Filed Vital Signs Vital Sign Reading Time Taken Comments Blood Pressure 110/74 03/04/2025 9:30 AM CDT Pulse 88 03/04/2025 9:30 AM CDT Temperature - - Respiratory Rate - - Oxygen Saturation 95% 03/04/2025 9:30 AM CDT Inhaled Oxygen Concentration - - Weight 107.5 kg (237 lb) 03/04/2025 9:30 AM CDT Height 177.8 cm (5' 10) 03/04/2025 9:30 AM CDT Body Mass Index 34.01 03/04/2025 9:30 AM CDT Plan of Treatment Health Maintenance Due Date Last Done Comments Colon Cancer Screening-Colonoscopy 1956 Depression Screening 1956 Fall Risk Assessment 1956 Hepatitis C Screening 1956 Prostate Cancer Screening-PSA 1956 Hepatitis B Screening 1974 Pneumococcal vaccine 65+ (1 of 2 - PCV) 1975 Zoster Vaccine (1 of 2) 2006 Abdominal Aortic Aneurysm (AAA) Screen 2021 Well Visit 65+ 2021 Influenza Vaccine (#1) 2025 DTaP/Tdap/Td Vaccine (2 - Td or Tdap) 10/05/2032 Insurance [facility] Care Teams Vehicle Inspector Relationship Specialty Start Date End Date Jovany Hernandez MD [address] [place] [address] PCP - General Family Medicine 03/14/24
[2025-08-19 10:06] LABS: Hematocrit 45.2 % (42.0-52.0); Hemoglobin 14.5 g/dL (14.0-18.0); Mean Corpuscular HGB Conc 32.1 g/dl (32-36); Mean Corpuscular Hemoglobin 29.3 pg (26-34); Mean Corpuscular Volume 91.3 fl (80-100); Platelet Count Result 211 k/mm3 (150-375); Red Blood Count 4.95 M/mm3 (4.6-6.20); White Blood Count 9.6 K/mm3 (4.5-10.0)
[2025-08-19 10:29] LABS: Hemoglobin A1C 6.1 % (<5.7)
[2025-08-19 10:43] LABS: Alanine Aminotransferase 29 U/L (6-50); Albumin Level 4.2 g/dL (3.5-5.1); Alkaline Phosphatase 81 U/L (38-126); Anion Gap 6 mmol/L (4-12); Aspartate Amino Transferase 27 U/L (17-59); Bilirubin,Total 0.4 mg/dL (0.2-1.3); Blood Urea Nitrogen 14 mg/dL (9-20); Calcium 9.0 mg/dL (8.4-10.2); Carbon Dioxide 31 mmol/L (22-30); Chloride 102 mmol/L (98-107); Cholesterol 119 mg/dL (0-200); Estimated Glomerular Filt Rate > 60; Glucose 102 mg/dL (65-110); HDL Direct 45 mg/dL; Potassium 4.6 mmol/L (3.4-5.0); Sodium 139 mmol/L (137-145); Total Protein 6.8 g/dL (6.3-8.2); Triglycerides 127 mg/dL (<150)
[2025-08-19 11:13] LABS: Prostate Specific Antigen 0.8 ng/mL (< OR = 4.0); Thyroid Stimulating Hormone 0.725 uIU/mL (0.465-4.680)
[2025-08-19 11:32] LABS: Vitamin B12 > 1000.0 pg/mL (239-931)
== END 2025-08-19 09:35 | disposition home or self-care (01) ==
PROVIDERS: PCP Family Medicine; Visit Provider Family Medicine
DX: I47.19 Other supraventricular tachycardia (principal); E78.2 Mixed hyperlipidemia; D64.9 Anemia, unspecified; E55.9 Vitamin D deficiency, unspecified; R79.89 Other specified abnormal findings of blood chemistry; R73.09 Other abnormal glucose; E53.8 Deficiency of other specified B group vitamins; Z12.5 Encounter for screening for malignant neoplasm of prostate; Z13.220 Encounter for screening for lipoid disorders
CPT/HCPCS: 36415; 80048; 80061; 80076; 82306; 82607; 83036; 84153; 84443; 85027; G0103